=== PATIENT | male | born 1990 | race Caucasian/White ===

== ENCOUNTER 2022-11-14 10:28 | Emergency (ER) | payer BC ==
[~2022-11-14] VITALS: Ht 167.6 cm; Wt 77.1 kg
--- NOTE | 2022-11-14 10:50 | NUR ---
PT RECEIVED, CARE ASSUMED. PT PRESENTS SELF TO ER WITH C/O GEN BODY PAIN, FEVER AND COUGH. PT IN ROOM WITH Malaika CARDONA
[2022-11-14 10:55] VITALS: BP_SYST 112
[2022-11-14 11:14] LABS: BASOPHILS % (AUTO) 0.2 % (0.0-2.0); HEMOGLOBIN 14.2 g/dL (14.0-18.0); LYMPHOCYTES # (AUTO) 1.2 K/uL (1.0-5.5); LYMPHOCYTES % (AUTO) 7.7 % (20.5-51.5); MEAN CORPUSCULAR HEMOGLOBIN 32 pg (27-31); MEAN CORPUSCULAR HGB CONC 34 % (32-36); MEAN CORPUSCULAR VOLUME 93 fL (79.0-98.0); MONOCYTES # (AUTO) 1.3 K/uL (0.0-1.0); MONOCYTES % (AUTO) 7.9 % (1.7-9.3); NEUTROPHILS # (AUTO) 13.5 K/uL (1.8-7.7); NEUTROPHILS % (AUTO) 84.2 % (40.0-70.0); PLATELET COUNT (AUTO) 200 K/uL (130-430); RED CELL DISTRIBUTION WIDTH 12.8 % (9.0-15.0); WHITE BLOOD COUNT (AUTO) 16.1 K/uL (4.8-10.8)
[2022-11-14 11:20] LABS: ANION GAP 11 (5-15); CALCIUM 8.6 mg/dL (8.4-11.0); CHLORIDE 97 mmol/L (98-107); CREATININE 1.14 mg/dL (0.55-1.30); GFR AFRICAN AMERICAN 97 mL/min (>90); GLUCOSE 137 mg/dL (70-99); UREA NITROGEN, BLOOD 11 mg/dL (8-21)
[2022-11-14 11:31] LABS: ALANINE AMINOTRANSFERASE 14 U/L (12-78); ALBUMIN 3.2 g/dL (3.4-4.8); ASPARTATE AMINOTRANSFERASE 12 U/L (10-37); TOTAL BILIRUBIN 0.3 mg/dL (0.0-1.0)
[2022-11-14 11:32] LABS: C-REACTIVE PROTEIN QUANT < 0.2 mg/dL (0-0.5)
[2022-11-14] MEDS ORDERED: ONDANSETRON 4 MG ODT TAB PO ONE (12:00)
[2022-11-14] MEDS ORDERED: IBUPROFEN 800 MG TABLET PO ONE (12:00)
[2022-11-14 12:14] LABS: BILIRUBIN,URINE 1+ (NEGATIVE); CLARITY/URINE CLEAR (CLEAR); COLOR,URINE YELLOW (YELLOW); GLUCOSE,URINE NEGATIVE (NEGATIVE); KETONES,URINE TRACE (NEGATIVE); LEUKOCYTE ESTERASE ,URINE NEGATIVE (NEGATIVE); NITRITE, URINE NEGATIVE (NEGATIVE); PROTEIN URINE 2+ (NEGATIVE)
[2022-11-14] MEDS ORDERED: ONDA-8 TL (12:14)
[2022-11-14] MEDS ORDERED: IBUP-1971 PO (12:14)
[2022-11-14] MEDS ORDERED: CEPH250C PO (12:14)
[2022-11-14] MEDS ORDERED: cefTRIAXone 1 GM in LIDOCAINE 1%, 20 ML MDV 2.1 ML IM ONE (12:15)
[2022-11-14 12:23] LABS: BLOOD, URINE TRACE (NEGATIVE)
[2022-11-14 12:37] LABS: BACTERIA,URINE RARE /HPF (None Seen); WBC,URINE 0-3 /HPF (0-3)
[2022-11-14 12:38] LABS: FINE GRANULAR CASTS,URINE 0-10 /LPF (None Seen); HYALINE CASTS, URINE 0-10 /LPF (None Seen); MUCUS,URINE 3+ /LPF (None Seen)
[2022-11-14 13:22] VITALS: BP_SYST 135
--- NOTE | 2022-11-14 13:25 | NUR ---
Patient given written and verbal discharge instructions and verbalizes understanding. ER MD discussed with patient the results and treatment provided. Patient in stable condition. ID arm band removed. Patient educated on pain management and to follow up with PMD. Pain Scale []. Opportunity for questions provided and answered. Medication side effect fact sheet provided.
== END 2022-11-14 13:25 | disposition home or self-care (01) ==
LOC: SED 10:28
DX: R50.9 Fever, unspecified (principal); R11.10 Vomiting, unspecified; R19.7 Diarrhea, unspecified; R05.9 Cough, unspecified; Z79.899 Other long term (current) drug therapy; Z20.822 Contact with and (suspected) exposure to COVID-19
CPT/HCPCS: 99284; 71045; 87426; 80053; 81000; 85025; 86140; 36415; 96372; 83605; 87804 ×2; Q0162; J0696; J2001

== ENCOUNTER 2022-11-16 13:43 | Inpatient (IN) | payer BC ==
[~2022-11-16] VITALS: Ht 167.6 cm; Wt 77.1 kg
[~2022-11-16 13:43] MED LIST: CEPH250C PO; IBUP-1971 PO; ONDA-8 TL
[2022-11-16 14:20] VITALS: BP_SYST 107
[2022-11-16 15:22] LABS: BASOPHILS % (AUTO) 0.3 % (0.0-2.0); EOSINOPHILS % (AUTO) 0.1 % (0.0-4.0); HEMATOCRIT 41.5 % (36-54); HEMOGLOBIN 14.2 g/dL (14.0-18.0); LYMPHOCYTES # (AUTO) 0.4 K/uL (1.0-5.5); LYMPHOCYTES % (AUTO) 4.2 % (20.5-51.5); MEAN CORPUSCULAR HEMOGLOBIN 32 pg (27-31); MEAN CORPUSCULAR HGB CONC 34 % (32-36); MEAN CORPUSCULAR VOLUME 94 fL (79.0-98.0); MONOCYTES # (AUTO) 0.4 K/uL (0.0-1.0); MONOCYTES % (AUTO) 4.2 % (1.7-9.3); NEUTROPHILS # (AUTO) 9.5 K/uL (1.8-7.7); NEUTROPHILS % (AUTO) 91.2 % (40.0-70.0); PLATELET COUNT (AUTO) 233 K/uL (130-430); RED BLOOD CELL COUNT(AUTO) 4.42 MIL/uL (4.2-6.2); RED CELL DISTRIBUTION WIDTH 13.1 % (9.0-15.0); WHITE BLOOD COUNT (AUTO) 10.4 K/uL (4.8-10.8)
[2022-11-16 15:39] LABS: ANION GAP 14 (5-15); CALCIUM 8.9 mg/dL (8.4-11.0); CHLORIDE 97 mmol/L (98-107); CREATININE 2.61 mg/dL (0.55-1.30); GFR AFRICAN AMERICAN 37 mL/min (>90); GLUCOSE 93 mg/dL (70-99); UREA NITROGEN, BLOOD 26 mg/dL (8-21)
[2022-11-16 15:41] LABS: ALANINE AMINOTRANSFERASE 46 U/L (12-78); ALBUMIN 2.7 g/dL (3.4-4.8); ASPARTATE AMINOTRANSFERASE 112 U/L (10-37); TOTAL BILIRUBIN 0.2 mg/dL (0.0-1.0)
--- NOTE | 2022-11-16 16:00 | NUR ---
Note undone in EDM - 11/16/22 at 1805 by [id number] Patient BIBA for c/o generalized weakness and change of condition at facility. Patient has PEG tube. Contracted limbs. Unable to answer questions at this time. Respiration even and unlabored. No shortness of breath. Will continue to monitor.
[2022-11-16 16:02] LABS: ACETONE, SERUM NEGATIVE (NEGATIVE)
[2022-11-16 16:14] LABS: C-REACTIVE PROTEIN QUANT 56.7 mg/dL (0-0.5)
[2022-11-16] MEDS ORDERED: NACL 0.9% 2,000 ML IV ONE (16:45)
--- NOTE | 2022-11-16 17:00 | NUR ---
Patient in ED bed 4 for c/o cough, general weakness. He was previously at hospital a few days ago but was discharged with medication. He came back today for check up and he said he felt weaker. Patient is alert and oriented x4. Calm cooperative. Respiration even and unlabored. No c/o pain. Will continue to monitor. Call light within reach.
[2022-11-16] MEDS ORDERED: cefTRIAXone 1 GM in D5W 50 ML IV ONE (17:30)
--- NOTE | 2022-11-16 17:38 | NUR ---
COVID SWAB COLLECTED AND SENT TO LAB.
[2022-11-16] MEDS ORDERED: POTASSIUM CHLORIDE 20 MEQ TAB.PRT.SR PO ONE (18:45)
[2022-11-16 18:55] VITALS: BP_SYST 124
--- NOTE | 2022-11-16 19:00 | NUR ---
INITIAL NOTE: Received Patient from ER, lying in bed. Patient noted to be shivering & SOB. Alert & oriented x 4. Vitals: 99.1 F, 109, 124/68, 22, 96% on RA. Patient is accompanied by his mother. Patient mother provided home medications, med recon completed & all meds were returned. No edema noted. Diminished lung sounds to bilateral lower lobes. Patient had order for Potassium chloride 40mEq now, which was given. Patient vomited x 1, small amount. Patient states he is not nauseous but having difficulty breathing during coughing causes vomiting. IV 20 gauge to right AC, flushed & patent with no c/o pain, no signs of infiltration. white board updated. Patient oriented to room. Bed in low, locked position. Patient requesting to use home Ibuprofen for pain. Call light & personal items within reach. Will endorse to oncoming nurse Patient request for pain meds.
[2022-11-16] MEDS ORDERED: DIVA500T PO (19:01)
[2022-11-16] MEDS ORDERED: ESCI10TA PO (19:02)
[2022-11-16] MEDS: D5/0.45 NS 1,000 ML IV SCH (19:59)
--- NOTE | 2022-11-16 20:01 | NUR ---
Patient will be admitted to care of DONOVAN. Admitted to unit. Will go to room . Belongings list completed. Complete and up to date summary report printed. SBAR report to be given at bedside with opportunity for questions.
[2022-11-16 20:11] VITALS: BP_SYST 121
--- NOTE | 2022-11-16 20:22 | NUR ---
CONSULTATION PAGED/CALLED Reason for Consultation: infection Person Who was Notified: jose Consulting Physician: delicia jiménez is director of flight operations Paving Crew Foreman Specialty: Ordering Physician: javon
--- NOTE | 2022-11-16 20:54 | NUR ---
phoned paged DR Ny MACIAS MD - ORDERS .
[2022-11-16] MEDS ORDERED: ONDANSETRON HCL 4 MG/2 ML VIAL IVP PRN (21:00)
[2022-11-16] MEDS ORDERED: ALBUTEROL SULFATE 0.083% 2.5 MG/3 ML VIAL.NEB INH ONE (21:13)
--- NOTE | 2022-11-16 21:15 | NUR ---
New orders DR GILBERTO JOHNSON / .
[2022-11-16] MEDS: IBUPROFEN 600 MG TABLET PO PRN (21:54)
[2022-11-16] MEDS: guaiFENesin/DEXTROMETHORPHAN 10 ML UDC PO PRN (21:54)
[2022-11-16] MEDS ORDERED: ALBUTEROL SULFATE 0.083% 2.5 MG/3 ML VIAL.NEB INH PRN (22:00)
--- NOTE | 2022-11-16 22:56 | NUR ---
Robitussin DM po given for acute cough .
--- NOTE | 2022-11-16 22:56 | NUR ---
MOTRIN 600 MG PO given for pain monitor / .
--- NOTE | 2022-11-16 22:57 | NUR ---
ZOFRAN 4 MG IVP GIVEN FOR GI UPSET & HELPFUL / .
[2022-11-16 23:18] VITALS: BP_SYST 121
[2022-11-17] MEDS ORDERED: NALOXONE HCL 0.4 MG/ML AMP (NARCAN) IVP PRN ×2
[2022-11-17] MEDS ORDERED: HYDROcodone/ACETAMIN 10-325 MG TAB PO PRN
[2022-11-17] MEDS ORDERED: HYDROcodone/ACETAMIN 5-325 MG TAB (NORCO/ VICODIN) PO PRN
--- NOTE | 2022-11-17 00:15 | NUR ---
New IV start 20 GAUGE Right F/A tolerate , medications infusing as ordered / monitor .
[2022-11-17] MEDS ORDERED: AZITHROMYCIN 500 MG/VIAL (ZITHROMAX) IV ONE (02:27)
[2022-11-17] MEDS: AZITHROMYCIN 500 MG in NS 250 ML IV SCH ×2 (03:03→23:43)
[2022-11-17] MEDS: cefTRIAXone 1 GM IVPB PREMIX 50 ML IV SCH ×2 (03:03→22:32)
[2022-11-17] MEDS: D5/0.45 NS 1,000 ML IV SCH ×3 (03:04→20:00)
--- NOTE | 2022-11-17 03:48 | NUR ---
ZITHROMAX 500 MG IVPB administer as ordered patient awake alert no adverse reaction noted assist as needed / .
[2022-11-17 03:51] VITALS: BP_SYST 135
--- NOTE | 2022-11-17 04:39 | NUR ---
CONSULTATION PAGED/CALLED Reason for Consultation: AVNI Person Who was Notified:CECIL Consulting Physician: KARLEE [employer] Consultant Specialty: Ordering Physician: GILBERTO Addendum: 11/17/22 at 0441 by Celine Becker CNA DR AGRAWAL IS TRAINING AND DEVELOPMENT HEAD
[2022-11-17 07:09] LABS: BASOPHILS % (AUTO) 0.2 % (0.0-2.0); HEMOGLOBIN 12.9 g/dL (14.0-18.0); LYMPHOCYTES % (AUTO) 10.3 % (20.5-51.5); MEAN CORPUSCULAR HEMOGLOBIN 32 pg (27-31); MEAN CORPUSCULAR HGB CONC 34 % (32-36); MEAN CORPUSCULAR VOLUME 94 fL (79.0-98.0); MONOCYTES # (AUTO) 0.3 K/uL (0.0-1.0); MONOCYTES % (AUTO) 3.1 % (1.7-9.3); NEUTROPHILS # (AUTO) 8.1 K/uL (1.8-7.7); NEUTROPHILS % (AUTO) 86.4 % (40.0-70.0); PLATELET COUNT (AUTO) 228 K/uL (130-430); RED BLOOD CELL COUNT(AUTO) 4.06 MIL/uL (4.2-6.2); WHITE BLOOD COUNT (AUTO) 9.4 K/uL (4.8-10.8)
[2022-11-17] MEDS ORDERED: ACETAMINOPHEN 325 MG TABLET PO PRN (07:15)
[2022-11-17 07:40] LABS: ALBUMIN 2.2 g/dL (3.4-4.8); CALCIUM 8.3 mg/dL (8.4-11.0); CREATININE 2.75 mg/dL (0.55-1.30); PHOSPHORUS 3.6 mg/dL (2.7-4.5); TOTAL BILIRUBIN 0.2 mg/dL (0.0-1.0)
[2022-11-17] MEDS: guaiFENesin/DEXTROMETHORPHAN 10 ML UDC PO PRN ×3 (08:01→22:03)
[2022-11-17] MEDS: CITALOPRAM HYDROBROMIDE 20 MG TABLET PO SCH (08:01)
[2022-11-17] MEDS: IBUPROFEN 600 MG TABLET PO PRN (08:02)
[2022-11-17] MEDS ORDERED: ESCITALOPRAM OXALATE 10 MG TABLET PO SCH (09:00)
--- NOTE | 2022-11-17 09:00 | NUR ---
paptient c/o head ache and cough, prn Robitussin and motrin administered per emar
[2022-11-17] MEDS: DIVALPROEX SODIUM 500 MG TAB.SR.24H (DEPAKOTE ER) PO SCH (09:33)
[2022-11-17] MEDS: ALBUTEROL SULFATE 0.083% 2.5 MG/3 ML VIAL.NEB INH PRN (11:18)
[2022-11-17] MEDS: IPRATROPIUM BROM 0.5 MG/2.5 ML VIAL.NEB (ATROVENT) INH PRN (11:19)
[2022-11-17 13:12] VITALS: BP_SYST 110
[2022-11-17 13:14] VITALS: BP_SYST 110
[2022-11-17] MEDS: IBUPROFEN 800 MG TABLET PO PRN ×2 (16:10→23:43)
--- NOTE | 2022-11-17 16:32 | NUR ---
Social Service assessment In to see patient this afternoon. I introduced myself to him and asked if he was in agreement to speaking with me. The patient was in agreement to speaking with me at bedside. per patient, he resides with his parents. He is independent with his care needs. He was using no assistive devices prior to his admission to the hospital. He does not have a Power of Career Development Manager. His PCP is Dr. Fernandez in [place]. The discharge plan is for him to return home with his parents. The parents were advised that at time of discharge, he will be assessed for necessary needs and services. The patient is in agreement with the discharge plan to return home. At time of discharge, the patient states his mother will transport him home. I inquired with the patient about his psychotropic medication usage. Per patient, he does take Depakote and Lorazepam. He states his psychotropic medication are managed and prescribed by his RA doctor. He states he sees his drMicky on a quarterly basis, and takes his medication as prescribed. At this time, the patient is not in need of additional services or support.
[2022-11-17 17:02] VITALS: BP_SYST 127
[2022-11-17 17:03] VITALS: BP_SYST 127
--- NOTE | 2022-11-17 18:00 | NUR ---
patient resting comfortably in bed, no c/o pain or discomfort at this time, will endorse care to pm nurse
[2022-11-17 20:00] VITALS: BP_SYST 104
[2022-11-18 00:22] VITALS: BP_SYST 125
[2022-11-18 05:04] LABS: BASOPHILS % (AUTO) 0.4 % (0.0-2.0); EOSINOPHILS % (AUTO) 0.1 % (0.0-4.0); HEMATOCRIT 37.2 % (36-54); HEMOGLOBIN 12.6 g/dL (14.0-18.0); LYMPHOCYTES # (AUTO) 1.3 K/uL (1.0-5.5); LYMPHOCYTES % (AUTO) 14.8 % (20.5-51.5); MEAN CORPUSCULAR HEMOGLOBIN 32 pg (27-31); MEAN CORPUSCULAR HGB CONC 34 % (32-36); MEAN CORPUSCULAR VOLUME 94 fL (79.0-98.0); MONOCYTES # (AUTO) 0.6 K/uL (0.0-1.0); MONOCYTES % (AUTO) 6.5 % (1.7-9.3); NEUTROPHILS # (AUTO) 7.1 K/uL (1.8-7.7); NEUTROPHILS % (AUTO) 78.2 % (40.0-70.0); PLATELET COUNT (AUTO) 259 K/uL (130-430); RED BLOOD CELL COUNT(AUTO) 3.96 MIL/uL (4.2-6.2); RED CELL DISTRIBUTION WIDTH 13.3 % (9.0-15.0); WHITE BLOOD COUNT (AUTO) 9.1 K/uL (4.8-10.8)
[2022-11-18] MEDS: ALBUTEROL SULFATE 0.083% 2.5 MG/3 ML VIAL.NEB INH PRN (05:28)
[2022-11-18] MEDS: IPRATROPIUM BROM 0.5 MG/2.5 ML VIAL.NEB (ATROVENT) INH PRN (05:29)
[2022-11-18 05:40] LABS: BILIRUBIN,URINE NEGATIVE (NEGATIVE); BLOOD, URINE 1+ (NEGATIVE); COLOR,URINE YELLOW (YELLOW); GLUCOSE,URINE NEGATIVE (NEGATIVE); KETONES,URINE NEGATIVE (NEGATIVE); LEUKOCYTE ESTERASE ,URINE NEGATIVE (NEGATIVE); NITRITE, URINE NEGATIVE (NEGATIVE); PROTEIN URINE TRACE (NEGATIVE); UROBILINOGEN,URINE 0.2 (0.2-1.0)
[2022-11-18 05:50] LABS: CALCIUM 8.4 mg/dL (8.4-11.0)
[2022-11-18 06:20] LABS: CLARITY/URINE HAZY (CLEAR)
[2022-11-18 06:24] LABS: BACTERIA,URINE None Seen /HPF (None Seen); RBC,URINE 0-3 /HPF (0-3); WBC,URINE 0-3 /HPF (0-3)
[2022-11-18 06:25] LABS: CREATININE 1.72 mg/dL (0.55-1.30); PHOSPHORUS 3.9 mg/dL (2.7-4.5)
[2022-11-18 08:00] VITALS: BP_SYST 113
[2022-11-18 08:07] LABS: CREATINE KINASE MB 0.7 ng/mL (0-3.6)
--- NOTE | 2022-11-18 08:07 | NUR ---
Patient was received from AM shift nurse during change of shift. Patient is AA&Ox4 able to make needs known with call light within reach. Patient denied any pain or discomfort at this time. Chest rise even and unlabored on RA. Patient received scheduled medications as indicated. Patient was noted throughout the shift of complaining of a recurrent headache and PRN was administered as per protocol. at 0400am patient reported a sudden SOB of breath and RT was notified patient was having a hard time catching his breath O2 was assessed and noted at 81. Placed patient on a NC at 6L and O2 remained low at 86 so Face mask was applied at 10L and O2 went up to 95%. RT arrived and gave PT a PRN breathing TX and patient O2 improved slightly and face mask was re applied at 7L. Patient O2 is noted to fluctuate from 93 to high 80'S. Patient seems to be tolerating O2 and improving. While providing assistance at this time patient reported that he believed that his HEREDIA may be related to a port injury that he had a few days ago that led to a fall. Report was reported to Pricila SIMMONS for follow up and continuity of care.
[2022-11-18 08:08] LABS: ERYTHROCYTE SEDIMENTATION RATE 76 MM/HR (0-15)
[2022-11-18 08:50] LABS: C-REACTIVE PROTEIN QUANT 52.5 mg/dL (0-0.5)
[2022-11-18] MEDS: guaiFENesin/DEXTROMETHORPHAN 10 ML UDC PO PRN ×2 (09:04→21:46)
[2022-11-18] MEDS: IBUPROFEN 800 MG TABLET PO PRN ×2 (09:05→17:57)
[2022-11-18] MEDS: CITALOPRAM HYDROBROMIDE 20 MG TABLET PO SCH (09:05)
[2022-11-18] MEDS: DIVALPROEX SODIUM 500 MG TAB.SR.24H (DEPAKOTE ER) PO SCH (09:05)
[2022-11-18] MEDS: D5/0.45 NS 1,000 ML IV SCH ×2 (09:06→21:31)
[2022-11-18 11:00] VITALS: BP_SYST 117
[2022-11-18] MEDS ORDERED: LINEZOLID 300 ML IV ONE (13:00)
[2022-11-18] MEDS ORDERED: POTASSIUM CHLORIDE 20 MEQ/PKT PACKET PO ONE (13:00)
[2022-11-18] MEDS: ALBUTEROL SULFATE 0.083% 2.5 MG/3 ML VIAL.NEB INH SCH ×2 (13:38→23:05)
[2022-11-18] MEDS: IPRATROPIUM BROM 0.5 MG/2.5 ML VIAL.NEB (ATROVENT) INH SCH ×2 (13:38→23:05)
[2022-11-18 15:52] VITALS: BP_SYST 130
--- NOTE | 2022-11-18 18:59 | NUR ---
PT A/OX4,ON O2 5L/NC,SAT 92%,C/O HEADAHCE AND THROAT PAIN,GIVE MOTRIN PO PRN ORDER FOR PAIN,IVF CONTINUE INFUSING,IV SITE IN RFA PATENT AND INTACT GIVE IV ANTIBIOTIC DUE,NO ADVERSE REACTIONS NOTED.NEEDS ATTENDED,CALL LIGHT & PERSONAL ITEMS WITHIN PT REACH,SAFETY MAINTAINED.CONTINUE TO MONITOR PT.
--- NOTE | 2022-11-18 19:34 | NUR ---
RECEIVED PT LYING IN BED, NO DISTRESS NOTED, DENIES PAIN. AAOX4, O2 SAT 92% ON 5L VIA NC WITH HUMIDIFIER. +COUGH. RT LUNG DIMINISHED. IV TO RT FA SITE CDI. WILL CONTINUE TO MONITOR.
[2022-11-18 19:53] LABS: URINE SODIUM, RANDOM 13 mmol/L (40-220)
[2022-11-18 20:00] VITALS: BP_SYST 133
[2022-11-18] MEDS: LINEZOLID 300 ML IV SCH (21:30)
[2022-11-18 21:32] LABS: BILIRUBIN,URINE NEGATIVE (NEGATIVE); BLOOD, URINE 1+ (NEGATIVE); CLARITY/URINE CLEAR (CLEAR); COLOR,URINE YELLOW (YELLOW); GLUCOSE,URINE NEGATIVE (NEGATIVE); KETONES,URINE NEGATIVE (NEGATIVE); LEUKOCYTE ESTERASE ,URINE NEGATIVE (NEGATIVE); NITRITE, URINE NEGATIVE (NEGATIVE); PROTEIN URINE 1+ (NEGATIVE); UROBILINOGEN,URINE 0.2 (0.2-1.0)
--- NOTE | 2022-11-18 21:55 | NUR ---
Dietitian Recommendations Recommendations 1. Continue on regular diet -Encourage PO intakes as well as input food preferences -Add turkey sandwich BID & Vegetable Soup enrique in computrition 2. Revisit supplements during f/u if intake do not improve. Monitor & Evaluate weight trends, PO intake, Gi, skin, labs Please refer to Nutrition Assessment for details MARISELA HAIRSTON Addendum: 11/18/22 at [address] Amended: Links added.
[2022-11-18 22:34] LABS: BACTERIA,URINE FEW /HPF (None Seen); RBC,URINE 0-3 /HPF (0-3)
[2022-11-18 22:44] LABS: COARSE GRANULAR CASTS,URINE 0-10 /LPF (None Seen)
[2022-11-18 22:45] LABS: MUCUS,URINE 1+ /LPF (None Seen); OTHER CASTS, URINE WBC CASTS 1+ /LPF (None Seen)
[2022-11-19] VITALS (21 sets, daily range): BP systolic 113–164
[2022-11-19] MEDS: AZITHROMYCIN 500 MG in NS 250 ML IV SCH ×2 (00:02→23:48)
[2022-11-19] MEDS: ALBUTEROL SULFATE 0.083% 2.5 MG/3 ML VIAL.NEB INH SCH ×3 (00:41→22:04)
[2022-11-19] MEDS: IPRATROPIUM BROM 0.5 MG/2.5 ML VIAL.NEB (ATROVENT) INH SCH ×3 (00:41→22:05)
[2022-11-19] MEDS: cefTRIAXone 1 GM IVPB PREMIX 50 ML IV SCH (01:33)
[2022-11-19] MEDS: LORazepam 2 MG/ML VIAL IVP PRN ×2 (01:45→22:13)
[2022-11-19] MEDS: ONDANSETRON HCL 4 MG/2 ML VIAL IVP PRN ×2 (03:28→19:55)
[2022-11-19] MEDS: ALBUTEROL SULFATE 0.083% 2.5 MG/3 ML VIAL.NEB INH PRN ×2 (04:06→07:14)
[2022-11-19] MEDS: IPRATROPIUM BROM 0.5 MG/2.5 ML VIAL.NEB (ATROVENT) INH PRN ×2 (04:07→07:14)
--- NOTE | 2022-11-19 04:13 | NUR ---
UPON RETURNING FROM A LUNCH BREAK, THE CHARGE NURSE WAS CALLING THE MD DUE TO PT HAVING DIFFICULTY BREATHING AND DESATURATION TO MID 80'S. RR 38 PER MIN. RT PUT PT ON HIGH FLOW AT 100% 35L, O2 SAT 91%. STAT CHEST XRAY AND TRANSFER ORDER TO ICU. Addendum: 11/19/22 at 0540 by Teton TROY Juarez RN NOTIFIED PT'S MOTHER ON PT'S CONDITION AND TRANSFER TO ICU
[2022-11-19 05:42] LABS: BASOPHILS % (AUTO) 0.1 % (0.0-2.0); EOSINOPHILS % (AUTO) 0.1 % (0.0-4.0); HEMATOCRIT 34.5 % (36-54); HEMOGLOBIN 11.8 g/dL (14.0-18.0); LYMPHOCYTES # (AUTO) 0.9 K/uL (1.0-5.5); LYMPHOCYTES % (AUTO) 10.4 % (20.5-51.5); MEAN CORPUSCULAR HEMOGLOBIN 32 pg (27-31); MEAN CORPUSCULAR HGB CONC 34 % (32-36); MEAN CORPUSCULAR VOLUME 93 fL (79.0-98.0); MONOCYTES % (AUTO) 10.5 % (1.7-9.3); NEUTROPHILS # (AUTO) 7.2 K/uL (1.8-7.7); NEUTROPHILS % (AUTO) 78.9 % (40.0-70.0); PLATELET COUNT (AUTO) 220 K/uL (130-430); RED BLOOD CELL COUNT(AUTO) 3.71 MIL/uL (4.2-6.2); RED CELL DISTRIBUTION WIDTH 13.7 % (9.0-15.0); WHITE BLOOD COUNT (AUTO) 9.1 K/uL (4.8-10.8)
[2022-11-19 06:02] LABS: CALCIUM 8.1 mg/dL (8.4-11.0); CREATININE 0.97 mg/dL (0.55-1.30); TOTAL BILIRUBIN 0.2 mg/dL (0.0-1.0)
[2022-11-19 06:03] LABS: PHOSPHORUS 3.6 mg/dL (2.7-4.5)
[2022-11-19 06:44] LABS: C-REACTIVE PROTEIN QUANT 42.2 mg/dL (0-0.5)
[2022-11-19 07:10] LABS: CKMB RELATIVE INDEX 0.1 (0.0-2.9); CREATINE KINASE MB 0.8 ng/mL (0-3.6)
--- NOTE | 2022-11-19 07:15 | NUR ---
MD MACIAS PAGED FOR CRITICAL RESULT OF K+-2.8, AWAITING CALL BACK
--- NOTE | 2022-11-19 07:15 | NUR ---
RECEIVED PT IN BED #8, STABLE, VSS, HOWEVER FEBRILE, ON 35L HI FLOW AT 100%, IV D51/2NS @100. PT IS AAOx3, NAD, AWAITING ADDITIONAL ASSESSMENTS BY CONSULTING MDs FOR PLAN OF CARE WITH DISPOSITION.
[2022-11-19] MEDS: D5/0.45 NS 1,000 ML IV SCH ×3 (07:27→20:28)
--- NOTE | 2022-11-19 07:30 | NUR ---
MD PARADA CALLED TO INQUIRE ON STATUS OF PATIENT, ABX ORDERS CHANGED ROCEPHIN TO CEFEPIME. REQUESTED ID BE CONSULTED FOR ADDITIONAL MEDICATIONS. MD TO SEE PATIENT BEDSIDE.
--- NOTE | 2022-11-19 07:35 | NUR ---
MD HARP RETURNED PHONE CALL COVERING ID. ADDITIONAL ASSESSMENTS FOR CULTURES REQUESTED. ORDERS PLACED.
[2022-11-19 07:41] LABS: ERYTHROCYTE SEDIMENTATION RATE 77 MM/HR (0-15)
--- NOTE | 2022-11-19 07:45 | NUR ---
MD MACIAS RETURNED PHONE CALL AND ORDER FOR K-RIDER OF 40 MEQ ORDERED
[2022-11-19] MEDS: ACETAMINOPHEN 325 MG TABLET PO PRN (07:57)
[2022-11-19] MEDS ORDERED: KCL 20 mEq in 100 mL (PREMIX) 200 ML IV ONE (08:00)
[2022-11-19] MEDS: CITALOPRAM HYDROBROMIDE 20 MG TABLET PO SCH (08:15)
[2022-11-19] MEDS: DIVALPROEX SODIUM 500 MG TAB.SR.24H (DEPAKOTE ER) PO SCH (08:15)
--- NOTE | 2022-11-19 09:49 | NUR ---
Short Nutrition Note RD attended ICU rounds and s/w primary RN about his condition. Pt is not really eating d/t lethargy, N/V. RN suggested full liquid diet (w/ Ensure TID) for ease of eating; RD ordered this. Pt will be seen for a full follow-up on 11/21 JULIA, MPH, RD
[2022-11-19] MEDS: LINEZOLID 300 ML IV SCH ×2 (09:57→20:29)
[2022-11-19 10:43] LABS: PROTHROMBIN TIME 10.4 SECS (9.5-12.5)
--- NOTE | 2022-11-19 10:45 | NUR ---
RT NOTES Per sputum collection order, pt was educated on correct sample needed. Pt nodded in understanding. Specimen collection cup was provided, pt. to notify nurse once sample is obtained.
[2022-11-19] MEDS: methylPREDNISolone SOD SUCC/PF 62.5 MG/ML VIAL IVP SCH ×3 (11:35→23:48)
[2022-11-19] MEDS: MEROPENEM 1 GM IVPB PREMIX 50 ML IV SCH ×2 (13:22→20:29)
[2022-11-19] MEDS ORDERED: CEFEPIME 2 GM in D5W 100 ML IV SCH (14:00)
[2022-11-19] MEDS ORDERED: POTASSIUM CHLORIDE 20 MEQ TAB.PRT.SR PO ONE (15:15)
[2022-11-19] MEDS ORDERED: MAGNESIUM SULFATE 50 ML IV ONE (17:00)
[2022-11-19 17:43] LABS: BASOPHILS % (AUTO) 0.1 % (0.0-2.0); HEMATOCRIT 35.2 % (36-54); LYMPHOCYTES # (AUTO) 0.5 K/uL (1.0-5.5); LYMPHOCYTES % (AUTO) 6.1 % (20.5-51.5); MEAN CORPUSCULAR HEMOGLOBIN 32 pg (27-31); MEAN CORPUSCULAR HGB CONC 34 % (32-36); MEAN CORPUSCULAR VOLUME 93 fL (79.0-98.0); MONOCYTES # (AUTO) 0.5 K/uL (0.0-1.0); MONOCYTES % (AUTO) 5.5 % (1.7-9.3); NEUTROPHILS % (AUTO) 88.3 % (40.0-70.0); PLATELET COUNT (AUTO) 193 K/uL (130-430); RED BLOOD CELL COUNT(AUTO) 3.77 MIL/uL (4.2-6.2); RED CELL DISTRIBUTION WIDTH 13.6 % (9.0-15.0)
--- NOTE | 2022-11-19 19:30 | NUR ---
Pt report received. Pt AAOx4, respirations even, mildly tachypneic with O2 at 35 LPM/HFNC at 100% FiO2. JOON Midline patent and secure with D5 1/2 NS at 100 mL/hr. VSS.
--- NOTE | 2022-11-19 22:00 | NUR ---
RT at bedside to place pt on BiPAP. Pt refuses and states that it gives him anxiety. Educated pt on importance of BiPAP therapy to help improve his oxygenation. Informed pt that he may receive Ativan to help with anxiety. Pt then agrees to BiPAP.
--- NOTE | 2022-11-19 22:08 | NUR ---
Pt medicated with Ativan 1 mg IVP. Breathing tx in progress per RT. SPO2 92%.
--- NOTE | 2022-11-19 22:20 | NUR ---
BiPAP in place per RT with settings: /, 16, 100%. Pt states that he feels more relaxed now after receiving medication. Improvement noted to respirations and SPO2 at 96%.
--- NOTE | 2022-11-19 23:55 | NUR ---
Pt resting quietly, tolerating BiPAP well. Respirations even and non-labored, SPO2 97%. Pt easily awakened, denies c/o pain or discomfort and no needs verbalized at this time.
[2022-11-20] VITALS (29 sets, daily range): BP systolic 96–187
[2022-11-20] MEDS: MEROPENEM 1 GM IVPB PREMIX 50 ML IV SCH ×3 (05:54→21:54)
[2022-11-20] MEDS: methylPREDNISolone SOD SUCC/PF 62.5 MG/ML VIAL IVP SCH ×4 (05:54→23:52)
[2022-11-20] MEDS: LORazepam 2 MG/ML VIAL IVP PRN (05:55)
--- NOTE | 2022-11-20 06:05 | NUR ---
Pt tachypneic with abdominal breathing noted, RR 36, SPO2 88%. Pt repositioned to right side with pillow support and Ativan 1 mg given IVP for anxiety.
--- NOTE | 2022-11-20 06:15 | NUR ---
Pt continues to be tachypneic with abdominal breathing, SPO2 improved to 92%. RT at bedside for ABG.
--- NOTE | 2022-11-20 06:25 | NUR ---
Improvement noted to respirations, SPO2 97%. RT notifies of ABG results: 7.411/45.1/70.9/28. Will continue to monitor.
[2022-11-20 06:36] LABS: BASOPHILS % (AUTO) 0.1 % (0.0-2.0); HEMATOCRIT 35.4 % (36-54); LYMPHOCYTES % (AUTO) 7.8 % (20.5-51.5); MEAN CORPUSCULAR HEMOGLOBIN 32 pg (27-31); MEAN CORPUSCULAR HGB CONC 34 % (32-36); MEAN CORPUSCULAR VOLUME 94 fL (79.0-98.0); MONOCYTES % (AUTO) 7.9 % (1.7-9.3); NEUTROPHILS # (AUTO) 10.5 K/uL (1.8-7.7); NEUTROPHILS % (AUTO) 84.2 % (40.0-70.0); PLATELET COUNT (AUTO) 177 K/uL (130-430); RED BLOOD CELL COUNT(AUTO) 3.79 MIL/uL (4.2-6.2); RED CELL DISTRIBUTION WIDTH 13.7 % (9.0-15.0); WHITE BLOOD COUNT (AUTO) 12.4 K/uL (4.8-10.8)
[2022-11-20 07:07] LABS: CALCIUM 8.3 mg/dL (8.4-11.0); CREATININE 0.78 mg/dL (0.55-1.30); PHOSPHORUS 3.9 mg/dL (2.7-4.5)
--- NOTE | 2022-11-20 07:15 | NUR ---
Pt report given to oncoming RN. BRITTON, TRUMAN.
[2022-11-20 07:33] LABS: C-REACTIVE PROTEIN QUANT 36.2 mg/dL (0-0.5)
[2022-11-20] MEDS: IPRATROPIUM BROM 0.5 MG/2.5 ML VIAL.NEB (ATROVENT) INH SCH ×3 (07:37→23:22)
[2022-11-20] MEDS: ALBUTEROL SULFATE 0.083% 2.5 MG/3 ML VIAL.NEB INH SCH ×4 (07:37→23:21)
--- NOTE | 2022-11-20 07:37 | NUR ---
rt notes 0737 pt removed bipap and trying to cough up some secretions, seemed to be anxious. pt complained of N/V. Pt was saturating low 50s. Increased bipap settings to 13/7 R20, 100% fio2. Placed pt to Vapo 40L/100% FIO2, pt sat improves to low 70s. Encouraged pt to wear bipap back instead and high chris in bed. Pt calmed right now, saturating 92-93%. will cont to monitor pt. TROY Contreras at bedside.
--- NOTE | 2022-11-20 08:00 | NUR ---
PT RECIEVED IN RESPIRATORY DISTRESS, FROM BIPAP TO HIFLOW, BACK TO BIPAP, PAGED MD-PT ON 100% FIO2, PAGED MD- DR DEL RIO ON THE WAY//LYNSEY CH IS IN CHARGE OF THIS PT/MW
[2022-11-20] MEDS: LINEZOLID 300 ML IV SCH ×2 (08:03→20:51)
[2022-11-20 08:51] LABS: ERYTHROCYTE SEDIMENTATION RATE 88 MM/HR (0-15)
[2022-11-20] MEDS: DIVALPROEX SODIUM 500 MG TAB.SR.24H (DEPAKOTE ER) PO SCH (09:00)
[2022-11-20] MEDS: CITALOPRAM HYDROBROMIDE 20 MG TABLET PO SCH (09:00)
--- NOTE | 2022-11-20 09:15 | NUR ---
rt notes 0915 Pt was intubated by MD Begum. Prior intubating, hyperoxygenate pt via BVM 15LPM. Pt on 7.5/25CM LL ETT confirmed by CXR. Per MD Placed pt on (PC 20, R20 PEEP 8, 100% FIO2). Bilateral breath sounds heard. CO2 detector color changed to yellow. Post intubation MD Begum did bronchoscopy and Bilateral BAL sputum sent to lab. Saturation slowly going up to high 80s. will cont to monitor pt. Per post intubation ABG in 1hr. TROY Contreras at bedside.
[2022-11-20] MEDS ORDERED: ETOMIDATE 20 MG/ 10 ML VIAL (AMIDATE) ONE (10:00)
[2022-11-20] MEDS ORDERED: ROCURONIUM BROMIDE 10 MG/ML (ZEMURON) ONE (10:00)
[2022-11-20] MEDS: FENTANYL CITRATE-0.9 % NACL/PF 100 ML IV PRN ×4 (10:21→23:54)
--- NOTE | 2022-11-20 10:38 | NUR ---
NECESSARY TO INTUBATE THIS PATIENT, DESATURATES WITH THE SMALLEST OF MOVEMENT AND THE SEDATION NEEDED TO MAINTAIN OXYGENATION NECESSITATES INTUBATION/DR PARADA EXPLAINED TO PT NEEDS INTUBATION, PT AGREED/MOM ALSO INFORMED AND IN AGREEMENT/PT LOW GRADE FEVER BUT PT HR/BP GOOD//MW
[2022-11-20] MEDS ORDERED: NOREPINEPHRINE 4 MG/4 ML VIAL IV ONE (10:49)
--- NOTE | 2022-11-20 11:30 | NUR ---
rt notes 1130 MD Begum per post intubation ABG results, increased PEEP to 10 once BP stabilized.
[2022-11-20] MEDS: MIDAZOLAM IN NACL,ISO-OSMOT/PF 100 ML IV PRN ×2 (11:52→15:54)
[2022-11-20] MEDS ORDERED: ROCURONIUM BROMIDE 10 MG/ML (ZEMURON) IV ONE (12:00)
[2022-11-20] MEDS ORDERED: ETOMIDATE 20 MG/ 10 ML VIAL (AMIDATE) IVP ONE (12:00)
[2022-11-20] MEDS: MICAFUNGIN SODIUM 100 MG in NS 100 ML IV SCH (14:46)
[2022-11-20] MEDS: D5/0.45 NS 1,000 ML IV SCH (14:47)
--- NOTE | 2022-11-20 15:42 | NUR ---
Nutrition F/U RD reviewed pt's current EMR including diet Hx, physician notes, nursing notes, pertinent labs/meds/procedures, care trends, and care activity. Short note d/t high workload. Subjective Info: RD spoke w/ pt's primary RN earlier today who stated that Dr. Begum cleared pt to start on EN support later today, and requested verbal Nutrition Consult for TF. Pt is due to be seen for full Nutrition F/U tomorrow, however, d/t imminent need for EN support, RD reviewed current case. Per LOS meeting, pt was intubated this morning. RN stated pt has been receiving 40 mcg of propofol (18.48 ml/hr; 488 kcal/day); no report of BM; skin intact. RD relayed rec for Vital AF 1.2 at 10 ml/hr, increase by 10 ml Q8h to goal of 50 ml/hr, Free Water Flush: 50 ml Q6h via NGT -- together w/ current propofol infusion, this provides 1928 kcal/day, 90 gm protein/day, and 1173 ml free water/day, which meets 91% of estimated caloric needs and 98% of upper end of estimated protein needs. RD to F/U as per nutrition care standards. NEW Estimated Energy Expenditure (kcals/day) 2128 (PSU 2002b d/t critical illness; Ve: 13.5; Tmax: 37.8'C) Estimated Protein Required (g/day) 92 (1.2 gm/kg CBW d/t critical illness) Estimated Fluid Required (l/day) 2.1 (1 ml/kcal/day for adult maintenance) Addendum: 11/20/22 at [address] RD was notified by registered dietetic technician that Vital AF 1.2 is currently [id number]. New RD rec for modification of TF formula to Pivot 1.5 at goal rate of 40 ml/hr -- yields 1928 kcal/day, 90 gm protein/day, and 920 ml free water/day, which meets 91% of estimated caloric needs and 98% of upper end of estimated protein needs.
[2022-11-20] MEDS: PROPOFOL DRIP 100 ML IV PRN ×2 (18:06→23:55)
[2022-11-20] MEDS ORDERED: NOREPINEPHRINE BITARTRATE 8 MG in NS 242 ML IV PRN (19:00)
[2022-11-20] MEDS: BUDESONIDE 0.5 MG/2 ML AMPUL.NEB INH SCH (19:45)
--- NOTE | 2022-11-20 20:00 | NUR ---
RN NOTES ORALLY INTUBATED WHEN SEEN, O2 100% ON PRESSURE CONTROL. SPO2 92%. PATIENT IS SEDATED WITH FENTANYL DRIP AT 100mcg/hr. VERSED DRIP AT 10 mg/hr SINUS RHYTHM ON THE MONITOR. AFEBRILE. OGT PATENT, WILL START WITH TUBE FEEDING, PIVOT 1.5 AT 10 ML/HR
[2022-11-20] MEDS: PANTOPRAZOLE SODIUM 40 MG/VIAL (PROTONIX) IVP SCH (20:52)
--- NOTE | 2022-11-20 22:30 | NUR ---
RN NOTES PM CARE DONE, REPOSITIONED FOR COMFORT.
[2022-11-21] VITALS (31 sets, daily range): BP systolic 114–148
[2022-11-21] MEDS: AZITHROMYCIN 500 MG in NS 250 ML IV SCH ×2 (00:03→23:38)
[2022-11-21] MEDS: MIDAZOLAM IN NACL,ISO-OSMOT/PF 100 ML IV PRN ×3 (01:09→18:52)
[2022-11-21] MEDS: IPRATROPIUM BROM 0.5 MG/2.5 ML VIAL.NEB (ATROVENT) INH PRN (03:09)
[2022-11-21] MEDS: ALBUTEROL SULFATE 0.083% 2.5 MG/3 ML VIAL.NEB INH SCH ×6 (03:09→23:18)
--- NOTE | 2022-11-21 04:00 | NUR ---
RN NOTES AM CARE DONE, REPOSITIONED FOR COMFORT. TUBE FEEDING WELL TOLERATED, HOB UP TO PREVENT POSS. ASPIRATION.
[2022-11-21 05:49] LABS: BASOPHILS % (AUTO) 0.2 % (0.0-2.0); HEMATOCRIT 33.3 % (36-54); HEMOGLOBIN 11.1 g/dL (14.0-18.0); LYMPHOCYTES # (AUTO) 1.1 K/uL (1.0-5.5); LYMPHOCYTES % (AUTO) 6.7 % (20.5-51.5); MEAN CORPUSCULAR HEMOGLOBIN 31 pg (27-31); MEAN CORPUSCULAR HGB CONC 33 % (32-36); MEAN CORPUSCULAR VOLUME 95 fL (79.0-98.0); MONOCYTES # (AUTO) 2.1 K/uL (0.0-1.0); NEUTROPHILS # (AUTO) 12.8 K/uL (1.8-7.7); NEUTROPHILS % (AUTO) 80.1 % (40.0-70.0); PLATELET COUNT (AUTO) 181 K/uL (130-430); RED BLOOD CELL COUNT(AUTO) 3.52 MIL/uL (4.2-6.2); RED CELL DISTRIBUTION WIDTH 13.7 % (9.0-15.0)
--- NOTE | 2022-11-21 06:00 | NUR ---
RN NOTES ON SAME VENT SETTING, SPO2 94% STILL ON FENTANYL DRIP @ 100mcg/hr, VERSED DRIP @ 10 mg/hr, PROPOFOL DRIP @ 40 mcg/min 50ml WATER FLUSH TO OGT, PIVOT 1.5 FEEDING WELL TOLERATED.
[2022-11-21] MEDS: MEROPENEM 1 GM IVPB PREMIX 50 ML IV SCH ×3 (06:14→22:00)
[2022-11-21] MEDS: methylPREDNISolone SOD SUCC/PF 62.5 MG/ML VIAL IVP SCH ×3 (06:16→22:02)
[2022-11-21 06:25] LABS: C-REACTIVE PROTEIN QUANT 28.1 mg/dL (0-0.5); CALCIUM 8.2 mg/dL (8.4-11.0); CREATININE 0.9 mg/dL (0.55-1.30); TOTAL BILIRUBIN 0.2 mg/dL (0.0-1.0)
[2022-11-21] MEDS: D5/0.45 NS 1,000 ML IV SCH ×3 (06:49→21:04)
[2022-11-21] MEDS: BUDESONIDE 0.5 MG/2 ML AMPUL.NEB INH SCH ×2 (07:08→19:21)
[2022-11-21 07:45] LABS: ERYTHROCYTE SEDIMENTATION RATE 54 MM/HR (0-15)
--- NOTE | 2022-11-21 09:30 | NUR ---
Nutrition F/U Admitting Diagnosis Pneumonia, Renal Failure Reviewed Pertinent Medical/Surgical Hx Medical Record Patient Primary RN Medical History Comment: Per H&P (11/17/22), patient is a 32-year-old male who presents to the ER for evaluation of lab redraw. The patient had been seen on 11/14/2022 for 3 days of nausea, vomiting, diarrhea, nonproductive cough, headache and fever. The patient was treated with Versed IM in ED and was discharged. The patient was given Keflex in the ER, for lab redraw in 2 days. The patient has not improved. Current problems: Sepsis, multifocal pneumonia, Hx of anxiety disorder, Acute kidney injury, Hyponatremia, Hyperkalemia, Hypoalbuminemia Subjective Information: RD attended ICU rounds this morning. Primary RN reported that pt has been tolerating TF well, currently at 20 ml/hr, but plans to increase TF to 30 ml/hr by 1400. Pt continues intubated/sedated on propofol at 40 mcg. RN stated ABG report came back this morning, and pt seems to be slowly improving. Current Diet Order/Nutrition Support: Pivot 1.5 at 40 ml/hr (goal rate), Free Water Flush: 50 ml W6h via NGT x1 day Patient/Significant Other Unable To Verbalize Education Provided Not Indicated Pertinent Medications: lovenox, zofran, solu-medrol, propofol at 18.507 ml/hr (489 kcal/day) Pertinent Labs: Na 138 WNL, K 4.5 WNL, CRE 0.90 WNL, eGFR 105 WNL, WBC 16 H Height (Feet) 5 feet Height (Inches) 6.00 inches Weight (Pounds) 170 pounds -- stable since 11/18 Patient Weight 77.111 kg Body Mass Index 27.44 kg/m2 Usual Weight 175 lbs %UBW 97 %IBW 120 Hughes/Adjusted Body Weight 142 Recent Weight Change Yes - Patient states UBW 175 lbs. ~5 lbs. weight loss Weight Status Overweight Last BM 11/19 Food Allergies No Usual Diet At Home Regular Diet Skin Integrity Comment: Paulino score: 17; skin intact/no edema documented Current % PO N/A -- EN support since 11/20 NEW Estimated Energy Expenditure (kcals/day) 2128 (PSU 2002b d/t critical illness; Ve: 13.5; Tmax: 37.8'C) Estimated Protein Required (g/day) 92 (1.2 gm/kg CBW d/t critical illness) Estimated Fluid Required (l/day) 2.1 (1 ml/kcal/day for adult maintenance) Problem/Etiology/Signs/Symptoms 1. Inadequate protein/energy intake r/t poor appetite AEB Inadequate PO intake reported by EMR and patient x3 days. *Improving w/ EN support 2. Altered nutrition-related lab values r/t renal dysfunction/current medical condition AEB labs (11/18/22) Na 135L, K 3.4L, Creat 1.72H, eGFR 50L. *Improved Expected Outcomes/Goals 1. EN support will meet >80% of estimated nutrient need without GI complications 2. Improved/stable nutrition-related labs 3. Maintain skin integrity Dietitian Recommendations * Continue Pivot 1.5 at goal rate of 40 ml/hr, Free Water Flush: 50 ml Q6h via NGT Provides: 1928 kcal/day, 90 gm protein/day, and 920 ml free water/day Meets: 91% of estimated caloric needs and 98% of upper end of estimated protein needs Monitor/Evaluation Comment Weight trends, PO intake, GI, skin, labs Follow Up High Risk: F/U in 2-3 days
--- NOTE | 2022-11-21 09:35 | NUR ---
Dietitian Recommendations * Continue Pivot 1.5 at 40 ml/hr (goal rate), Free Water Flush: 50 ml Q6h via NGT Provides: 1928 kcal/day, 90 gm protein/day, and 920 ml free water/day Meets: 91% of estimated caloric needs and 98% of upper end of estimated protein needs LP, MS, RD Please refer to Nutrition F/U for details.
[2022-11-21] MEDS: LINEZOLID 300 ML IV SCH ×2 (10:06→21:03)
[2022-11-21] MEDS: ENOXAPARIN SODIUM 40 MG/0.4 ML SYRINGE SUBCUT SCH (10:12)
[2022-11-21] MEDS: DIVALPROEX SODIUM 500 MG TAB.SR.24H (DEPAKOTE ER) PO SCH (10:12)
[2022-11-21] MEDS: PANTOPRAZOLE SODIUM 40 MG/VIAL (PROTONIX) IVP SCH ×2 (10:12→21:03)
[2022-11-21] MEDS: CITALOPRAM HYDROBROMIDE 20 MG TABLET PO SCH (10:12)
--- NOTE | 2022-11-21 10:25 | NUR ---
rt notes 1000 MD Begum decreased fio2 to 85%. Pt saturting 92-93%. 1025 Per MD Begum pushed down ETT 1cm - 26cm LL due to leak, order executed. RN Teresa made aware. 1030- Pt starting to desaturate and starting wakin up. Pt placed back to 100% fio2 for now. 1040- ABG on 85% fio2 done. MD Begum made aware, per MD go back to 85% fio2 as much as possible. will cont to monitor pt.
[2022-11-21] MEDS: PROPOFOL DRIP 100 ML IV PRN ×3 (10:35→20:48)
[2022-11-21] MEDS: IPRATROPIUM BROM 0.5 MG/2.5 ML VIAL.NEB (ATROVENT) INH SCH ×4 (11:06→23:19)
--- NOTE | 2022-11-21 11:07 | NUR ---
RT NOTES 1107 TITRATED FIO2 TO 95%. RN AMAN MADE AWARE.
[2022-11-21] MEDS: FENTANYL CITRATE-0.9 % NACL/PF 100 ML IV PRN (15:04)
[2022-11-21] MEDS: MICAFUNGIN SODIUM 100 MG in NS 100 ML IV SCH (15:07)
--- NOTE | 2022-11-21 15:42 | NUR ---
rt notes 1542 increased fio2 to 100%, pt had desaturation episode to mid 70s. pt starting to wake up pt getting agitated/restless, pt getting tachypneic. will titrate fio2 as tolerated. ETT garay switched out as well due to pt biting tube. ETT still secured at 26cm LL. will cont to monitor pt.
--- NOTE | 2022-11-21 18:34 | NUR ---
The afternoon, the patient desaturated to the 70's, he was awake, restless and biting the ETT, it was secured @26cm. Patient titrated several times this shift, due to increase anxiety, attempted to wean the patient off but unsuccessful, sedation continues with Fentanyl @ 150mcgs, Versed 15mg and Diprivan @75mcgs. Breathing easy and unlabored, the patient is currently calm on vent.
--- NOTE | 2022-11-21 18:57 | NUR ---
The vent settings are as follows: PC 20, rate 20, peep 10 and Fi02 of 100%. No acute distress noted.
--- NOTE | 2022-11-21 20:00 | NUR ---
RN NOTES STILL ORALLY INTUBATED TO VENT, SPO2 GOOD. SINUS RHYTHM ON THE MONITOR, TUBE FEEDING AT 30 ML/HR PATIENT MADE COMFORTABLE.
[2022-11-22] VITALS (35 sets, daily range): BP systolic 111–131
[2022-11-22] MEDS: PROPOFOL DRIP 100 ML IV PRN ×7 (00:09→20:20)
[2022-11-22] MEDS: MIDAZOLAM IN NACL,ISO-OSMOT/PF 100 ML IV PRN ×3 (00:20→20:18)
[2022-11-22] MEDS: IPRATROPIUM BROM 0.5 MG/2.5 ML VIAL.NEB (ATROVENT) INH SCH ×6 (03:32→23:08)
[2022-11-22] MEDS: ALBUTEROL SULFATE 0.083% 2.5 MG/3 ML VIAL.NEB INH SCH ×6 (03:33→23:07)
--- NOTE | 2022-11-22 04:30 | NUR ---
RN NOTES AM CARE DONE. REPOSITIONED FOR COMFORT. RESTRAINTS OFF.
[2022-11-22] MEDS: D5/0.45 NS 1,000 ML IV SCH ×2 (05:30→17:08)
--- NOTE | 2022-11-22 06:00 | NUR ---
RN NOTES SAME SEDATION INFUSING VIA RIGHT UPPER ARM. STILL 100% ON PRESSURE CONTROL. PIVOT FEEDING RATE INCREASED TO 40 ML/HR.
[2022-11-22 06:01] LABS: BASOPHILS % (AUTO) 0.2 % (0.0-2.0); HEMOGLOBIN 10.7 g/dL (14.0-18.0); LYMPHOCYTES # (AUTO) 0.9 K/uL (1.0-5.5); LYMPHOCYTES % (AUTO) 5.3 % (20.5-51.5); MEAN CORPUSCULAR HEMOGLOBIN 32 pg (27-31); MEAN CORPUSCULAR HGB CONC 33 % (32-36); MEAN CORPUSCULAR VOLUME 95 fL (79.0-98.0); MONOCYTES # (AUTO) 1.9 K/uL (0.0-1.0); MONOCYTES % (AUTO) 11.3 % (1.7-9.3); NEUTROPHILS # (AUTO) 13.7 K/uL (1.8-7.7); NEUTROPHILS % (AUTO) 83.2 % (40.0-70.0); PLATELET COUNT (AUTO) 228 K/uL (130-430); RED BLOOD CELL COUNT(AUTO) 3.37 MIL/uL (4.2-6.2); RED CELL DISTRIBUTION WIDTH 13.8 % (9.0-15.0); WHITE BLOOD COUNT (AUTO) 16.4 K/uL (4.8-10.8)
[2022-11-22 06:18] LABS: CALCIUM 7.9 mg/dL (8.4-11.0); CREATININE 0.72 mg/dL (0.55-1.30)
[2022-11-22] MEDS: MEROPENEM 1 GM IVPB PREMIX 50 ML IV SCH ×3 (06:21→21:57)
[2022-11-22] MEDS: methylPREDNISolone SOD SUCC/PF 62.5 MG/ML VIAL IVP SCH ×3 (06:22→21:57)
[2022-11-22] MEDS: BUDESONIDE 0.5 MG/2 ML AMPUL.NEB INH SCH ×2 (08:07→19:37)
[2022-11-22] MEDS: ENOXAPARIN SODIUM 40 MG/0.4 ML SYRINGE SUBCUT SCH (08:36)
[2022-11-22] MEDS: DIVALPROEX SODIUM 500 MG TAB.SR.24H (DEPAKOTE ER) PO SCH (08:36)
[2022-11-22] MEDS: PANTOPRAZOLE SODIUM 40 MG/VIAL (PROTONIX) IVP SCH ×2 (08:36→20:43)
[2022-11-22] MEDS: CITALOPRAM HYDROBROMIDE 20 MG TABLET PO SCH (08:36)
[2022-11-22] MEDS: LINEZOLID 300 ML IV SCH (08:39)
[2022-11-22 09:49] LABS: ERYTHROCYTE SEDIMENTATION RATE 42 MM/HR (0-15)
[2022-11-22] MEDS ORDERED: FUROSEMIDE 20 MG/2 ML VIAL IVP ONE (10:45)
[2022-11-22] MEDS ORDERED: SULFAMETHOXAZOLE/TRIMETHOPR DS 1 TABLET PO ONE (11:30)
[2022-11-22] MEDS: FENTANYL CITRATE-0.9 % NACL/PF 100 ML IV PRN ×2 (12:12→19:22)
[2022-11-22] MEDS: AZITHROMYCIN 500 MG in NS 250 ML IV SCH (13:45)
[2022-11-22] MEDS: MICAFUNGIN SODIUM 100 MG in NS 100 ML IV SCH (14:46)
--- NOTE | 2022-11-22 17:18 | NUR ---
Approximately 0900- Per chargeback specialist, patient unstable to go to CT scan due to desaturations with activity and FIO2 100% on ventilator. CT staff aware and on unit. 1030- Dr. Begum rounded at bedside. Aware of RT weaning FIO2 from 100% to 95%. Aware of most recent ABG results and CBC and BMP results. Aware of current sedation medication drip rates. New orders rec'd. 1045- Dr. Brenner rounded at bedside. Made aware pending results for x4 lab results. Aware of most recent sputum results x2. Aware of current antibiotics ordered. New orders rec'd.
[2022-11-22] MEDS: SULFAMETHOXAZOLE/TRIMETHOPR DS 1 TABLET PO SCH (20:44)
[2022-11-23] VITALS (32 sets, daily range): BP systolic 121–143
[2022-11-23] MEDS: PROPOFOL DRIP 100 ML IV PRN ×8 (00:16→21:53)
--- NOTE | 2022-11-23 00:30 | NUR ---
RN NOTES SPO2 88%, FIO2 CHANGED TO 95% BY RT. SINUS RHYTHM ON THE MONITOR.
[2022-11-23] MEDS: FENTANYL CITRATE-0.9 % NACL/PF 100 ML IV PRN ×5 (01:14→22:39)
[2022-11-23] MEDS: MIDAZOLAM IN NACL,ISO-OSMOT/PF 100 ML IV PRN ×4 (02:54→20:19)
[2022-11-23] MEDS: IPRATROPIUM BROM 0.5 MG/2.5 ML VIAL.NEB (ATROVENT) INH SCH ×6 (03:19→23:00)
[2022-11-23] MEDS: ALBUTEROL SULFATE 0.083% 2.5 MG/3 ML VIAL.NEB INH SCH ×6 (03:19→22:59)
--- NOTE | 2022-11-23 05:00 | NUR ---
RN NOTES AM CARE/CHG BATH DONE. ON SAME VENT SETTING, SPO2 GOOD.
[2022-11-23] MEDS: D5/0.45 NS 1,000 ML IV SCH (05:27)
[2022-11-23] MEDS: MEROPENEM 1 GM IVPB PREMIX 50 ML IV SCH ×3 (05:28→20:54)
[2022-11-23] MEDS: methylPREDNISolone SOD SUCC/PF 62.5 MG/ML VIAL IVP SCH ×3 (05:28→21:56)
[2022-11-23 05:57] LABS: BASOPHILS % (AUTO) 0.1 % (0.0-2.0); HEMOGLOBIN 10.5 g/dL (14.0-18.0); LYMPHOCYTES # (AUTO) 1.2 K/uL (1.0-5.5); MEAN CORPUSCULAR HEMOGLOBIN 31 pg (27-31); MEAN CORPUSCULAR HGB CONC 33 % (32-36); MEAN CORPUSCULAR VOLUME 95 fL (79.0-98.0); MONOCYTES # (AUTO) 2.3 K/uL (0.0-1.0); MONOCYTES % (AUTO) 11.1 % (1.7-9.3); NEUTROPHILS # (AUTO) 17.2 K/uL (1.8-7.7); NEUTROPHILS % (AUTO) 82.8 % (40.0-70.0); PLATELET COUNT (AUTO) 272 K/uL (130-430); RED BLOOD CELL COUNT(AUTO) 3.37 MIL/uL (4.2-6.2); RED CELL DISTRIBUTION WIDTH 13.8 % (9.0-15.0)
[2022-11-23 06:14] LABS: C-REACTIVE PROTEIN QUANT 16.8 mg/dL (0-0.5); CALCIUM 7.8 mg/dL (8.4-11.0); CREATININE 0.77 mg/dL (0.55-1.30)
[2022-11-23] MEDS: BUDESONIDE 0.5 MG/2 ML AMPUL.NEB INH SCH ×2 (07:14→19:33)
--- NOTE | 2022-11-23 07:15 | NUR ---
received pt from transportation maintenance worker, sedated, on propofol, fentanyl, versed, PS 20 FiO2 100, OGT pivot 1.5 at 40 cc/hr tolerated well, FC patent draining with yellow urine, right UA midline infusing.
[2022-11-23 07:40] LABS: WHITE BLOOD COUNT (AUTO) 20.8 K/uL (4.8-10.8)
[2022-11-23 08:14] LABS: ERYTHROCYTE SEDIMENTATION RATE 51 MM/HR (0-15)
[2022-11-23] MEDS: DIVALPROEX SODIUM 500 MG TAB.SR.24H (DEPAKOTE ER) PO SCH (09:52)
[2022-11-23] MEDS: SULFAMETHOXAZOLE/TRIMETHOPR DS 1 TABLET PO SCH ×2 (09:52→20:54)
[2022-11-23] MEDS: CITALOPRAM HYDROBROMIDE 20 MG TABLET PO SCH (09:52)
[2022-11-23] MEDS: PANTOPRAZOLE SODIUM 40 MG/VIAL (PROTONIX) IVP SCH ×2 (09:52→20:54)
[2022-11-23] MEDS: ENOXAPARIN SODIUM 40 MG/0.4 ML SYRINGE SUBCUT SCH (09:52)
--- NOTE | 2022-11-23 10:45 | NUR ---
Nutrition F/U Admitting Diagnosis Pneumonia, Renal Failure Reviewed Pertinent Medical/Surgical Hx Medical Record Primary RN Medical History Comment: Per H&P (11/17/22), patient is a 32-year-old male who presents to the ER for evaluation of lab redraw. The patient had been seen on 11/14/2022 for 3 days of nausea, vomiting, diarrhea, nonproductive cough, headache and fever. The patient was treated with Versed IM in ED and was discharged. The patient was given Keflex in the ER, for lab redraw in 2 days. The patient has not improved. Current problems: Sepsis, multifocal pneumonia, Hx of anxiety disorder, Acute kidney injury, Hyponatremia, Hyperkalemia, Hypoalbuminemia Subjective Information: RD rounded to pt room and witnessed propofol running at 34.7 ml/hr (provides 916 kcal) and D5Ns @ 100ml/hr (provides 408kcal). Pt TF was turned off at the time. RD s/w RN about pt condition. RN attest that pt is in severe acute respiratory failure and will be placed in prone position. TF will be off during that time. RD asked if they would keep the D5 running since he had high BG levels and RN said they would likely switch to NS. Per EMR review: abd soft w/ hypoactive bowel sounds; BG trending high (168H). Current Diet Order/Nutrition Support: Pivot 1.5 at 40 ml/hr (goal rate), Free Water Flush: 50 ml q6h via NGT x 4 days Pertinent Medications: lovenox, solu-medrol, propofol at 34.7 ml/hr (916 kcal/day), azithro, D5NS @ 100mL/hr ( 408 kcal) Pertinent Labs: Na 141 WNL, K 4.7 WNL, CRE 0.77 WNL, eGFR 126 WNL, WBC 20.8 H (worsening) Height (Feet) 5 feet Height (Inches) 6.00 inches Weight (Pounds) 170 pounds -- stable since 11/18 Patient Weight 77.111 kg Body Mass Index 27.44 kg/m2 Usual Weight 175 lbs %UBW 97 %IBW 120 [place]/Adjusted Body Weight 142 Recent Weight Change Yes - Patient states UBW 175 lbs. ~5 lbs. weight loss Weight Status Overweight Last BM 3/29 x 1 Food Allergies No Usual Diet At Home Regular Diet Skin Integrity Comment: Paulino score: 14; skin intact Edema: BL arm 1+ pitting Current % PO N/A -- EN support since 11/20 Estimated Energy Expenditure (kcals/day) 2128 (PSU d/t critical illness; Ve: 13.5; Tmax: 37.8'C) Estimated Protein Required (g/day) 92 (1.2 gm/kg CBW d/t critical illness) Estimated Fluid Required (l/day) 2.1 (1 ml/kcal/day for adult maintenance) Problem/Etiology/Signs/Symptoms 1. Inadequate protein/energy intake r/t poor appetite AEB Inadequate PO intake reported by EMR and patient x3 days. *Improving w/ EN support 2. Altered nutrition-related lab values r/t renal dysfunction/current medical condition AEB labs (11/18/22) Na 135L, K 3.4L, Creat 1.72H, eGFR 50L. *Improved Expected Outcomes/Goals 1. EN support will meet >80% of estimated nutrient need without GI complications 2. Improved/stable nutrition-related labs 3. Maintain skin integrity Dietitian Recommendations * Pivot 1.5 at goal rate of 30 ml/hr, Free Water Flush: 50 ml Q6h via NGT Provides (w/ current prop and D5): 2404 kcal/day, 68 gm protein/day, and 740 ml free water (inc FWF) Meets: 113% of estimated caloric needs and 74% of estimated protein needs * Consider DC D5Ns as BG are trending high * If pt is extubated, please contact RD to re-assess nutritional needs Follow Up High Risk: F/U in 2-3 days JULIA, MPH, RD
--- NOTE | 2022-11-23 10:50 | NUR ---
Dietitian Recommendations * Pivot 1.5 at goal rate of 30 ml/hr, Free Water Flush: 50 ml Q6h via NGT Provides (w/ current prop and D5): 2404 kcal/day, 68 gm protein/day, and 740 ml free water (inc FWF) Meets: 113% of estimated caloric needs and 74% of estimated protein needs * Consider DC D5Ns as BG are trending high * If pt is extubated, please contact RD to re-assess nutritional needs GS, MPH, RD Please refer to Nutrition F/U for further details. Thanks!
--- NOTE | 2022-11-23 12:01 | NUR ---
Baseline TOF / @ 6mA
[2022-11-23] MEDS: VECURONIUM BROMIDE 50 MG in NS 50 ML IV PRN ×2 (12:55→16:40)
[2022-11-23] MEDS: AZITHROMYCIN 500 MG in NS 250 ML IV SCH (13:35)
[2022-11-23] MEDS: MICAFUNGIN SODIUM 100 MG in NS 100 ML IV SCH (15:33)
[2022-11-23] MEDS: NACL 0.9% 1,000 ML IV SCH (15:34)
[2022-11-23] MEDS: FUROSEMIDE 20 MG/2 ML VIAL IVP SCH (20:55)
[2022-11-24] VITALS (30 sets, daily range): BP systolic 115–140
[2022-11-24] MEDS: PROPOFOL DRIP 100 ML IV PRN ×5 (00:51→21:14)
[2022-11-24] MEDS: FENTANYL CITRATE-0.9 % NACL/PF 100 ML IV PRN ×3 (01:57→10:05)
[2022-11-24] MEDS: MIDAZOLAM IN NACL,ISO-OSMOT/PF 100 ML IV PRN ×3 (01:59→17:07)
[2022-11-24] MEDS: ALBUTEROL SULFATE 0.083% 2.5 MG/3 ML VIAL.NEB INH SCH ×6 (03:30→23:27)
[2022-11-24] MEDS: IPRATROPIUM BROM 0.5 MG/2.5 ML VIAL.NEB (ATROVENT) INH SCH ×6 (03:31→23:27)
[2022-11-24] MEDS: NACL 0.9% 1,000 ML IV SCH ×2 (04:13→18:26)
[2022-11-24] MEDS ORDERED: fentaNYL CITRATE/PF 100 MCG/2 ML AMP ONE ×2 (05:10→05:13)
[2022-11-24 05:39] LABS: BASOPHILS % (AUTO) 0.2 % (0.0-2.0); HEMATOCRIT 31.4 % (36-54); HEMOGLOBIN 10.5 g/dL (14.0-18.0); LYMPHOCYTES # (AUTO) 1.2 K/uL (1.0-5.5); LYMPHOCYTES % (AUTO) 5.7 % (20.5-51.5); MEAN CORPUSCULAR HEMOGLOBIN 31 pg (27-31); MEAN CORPUSCULAR HGB CONC 33 % (32-36); MEAN CORPUSCULAR VOLUME 94 fL (79.0-98.0); MONOCYTES # (AUTO) 1.6 K/uL (0.0-1.0); MONOCYTES % (AUTO) 7.1 % (1.7-9.3); NEUTROPHILS # (AUTO) 19.1 K/uL (1.8-7.7); PLATELET COUNT (AUTO) 296 K/uL (130-430); RED BLOOD CELL COUNT(AUTO) 3.33 MIL/uL (4.2-6.2); RED CELL DISTRIBUTION WIDTH 13.8 % (9.0-15.0); WHITE BLOOD COUNT (AUTO) 21.9 K/uL (4.8-10.8)
[2022-11-24] MEDS: VECURONIUM BROMIDE 50 MG in NS 50 ML IV PRN ×2 (05:39→19:42)
[2022-11-24] MEDS: MEROPENEM 1 GM IVPB PREMIX 50 ML IV SCH ×3 (05:39→21:07)
[2022-11-24 06:00] LABS: ALBUMIN 1.6 g/dL (3.4-4.8); C-REACTIVE PROTEIN QUANT 25.4 mg/dL (0-0.5); CALCIUM 7.9 mg/dL (8.4-11.0); CREATININE 0.7 mg/dL (0.55-1.30); PHOSPHORUS 4.2 mg/dL (2.7-4.5); TOTAL BILIRUBIN 0.3 mg/dL (0.0-1.0)
[2022-11-24] MEDS: methylPREDNISolone SOD SUCC/PF 62.5 MG/ML VIAL IVP SCH ×3 (06:00→21:13)
[2022-11-24 06:57] LABS: ERYTHROCYTE SEDIMENTATION RATE 60 MM/HR (0-15)
[2022-11-24] MEDS: BUDESONIDE 0.5 MG/2 ML AMPUL.NEB INH SCH ×2 (07:36→20:05)
[2022-11-24] MEDS: ENOXAPARIN SODIUM 40 MG/0.4 ML SYRINGE SUBCUT SCH (08:06)
[2022-11-24] MEDS: PANTOPRAZOLE SODIUM 40 MG/VIAL (PROTONIX) IVP SCH ×2 (08:06→21:12)
[2022-11-24] MEDS: FUROSEMIDE 20 MG/2 ML VIAL IVP SCH ×2 (08:06→21:12)
[2022-11-24] MEDS: CITALOPRAM HYDROBROMIDE 20 MG TABLET PO SCH (08:07)
[2022-11-24] MEDS: DIVALPROEX SODIUM 500 MG TAB.SR.24H (DEPAKOTE ER) PO SCH (08:07)
--- NOTE | 2022-11-24 08:15 | NUR ---
DR. SCANLON AT BEDSIDE AND AWARE THAT PATIENT IS RECEIVING MAX DOSE OF DIPRIVAN, VERSED, VECURONIUM, AND FENTANYL. TRAIN IS 4/4.
--- NOTE | 2022-11-24 08:15 | NUR ---
DR. SCANLON AT BEDSIDE, WHEN CHEST X-FAY RESULTS PENDING. ONCE THEY ARE RESULTED PER DR. SCANLON, HE WILL LOOK AT THE RESULTS. PER DR. SCANLON NO NEED TO CALL HIM REGARDING FOLOW UP OF CHEST X-RAY.
[2022-11-24] MEDS: SULFAMETHOXAZOLE/TRIMETHOPR DS 1 TABLET PO SCH ×2 (08:52→21:07)
--- NOTE | 2022-11-24 09:00 | NUR ---
rt notes 09 MD Frost changed pt vent settings to AC26,400VT PEEP 10 100% FIO2. pt saturating 95%. Per MD ABG in few hours. TROY Beltran made aware. will cont to monitor pt.
--- NOTE | 2022-11-24 10:50 | NUR ---
DR. HARP AT BEDSIDE TO EXAMINE PATIENT AND REVIEW LABS, AT THIS TIME PER DR. HARP PLACE PATIENT ON TB PRECAUTIONS. SIGNED POSTED OUTSIDE OF PATIENT'S DOOR. TB BLOOD AND SPUTUM TEST ORDERED.
--- NOTE | 2022-11-24 12:00 | NUR ---
PATIENT NOW SUPINE POSITION, TOLERATED WELL. O2 SATURATIONS INCREASED. NO S/SX DISTRESS/DISCOMFORT.
[2022-11-24] MEDS: AZITHROMYCIN 500 MG in NS 250 ML IV SCH (12:12)
--- NOTE | 2022-11-24 12:15 | NUR ---
rt notes 1215 Post ABG results on vent settings changes PRADIP 26, MD Frost no new orders. Pt kept on AC26, 400VT PEEP 10, 100% FIO2. Will titrate o2 as pt tolerates. will cont to monitor pt.
--- NOTE | 2022-11-24 12:15 | NUR ---
DR. SCANLON INFORMED BY TELEPHONE, REGARDING ABG RESULTS. NO NEW ORDERS AT THIS TIME, KEEP VENT SETTINGS THE SAME, JULIO GERARD MADE AWARE.
--- NOTE | 2022-11-24 12:25 | NUR ---
rt notes 1225 Pt placed supine. Prior and post supining pt, ett/oral sxn'd. ETT secured and patent at 26cm LL. pt saturating 96-97%. no resp distress noted.
--- NOTE | 2022-11-24 13:20 | NUR ---
TROY ÁLVAREZ CALLED PATIENT'S MOTHER ANUPAMA LITTLE AT HER CELL PHONE NUMBER PER MOTHER'S REQUEST TO OBTAIN UPDATE ON HOW SON TOLERATED BEING SUPINE. RN CALLED, NO ANSWER A VOICE MAIL MESSAGE WAS LEFT.
[2022-11-24] MEDS: MICAFUNGIN SODIUM 100 MG in NS 100 ML IV SCH (14:07)
--- NOTE | 2022-11-24 15:30 | NUR ---
rt notes 1530 Titrated fio2 to 90%, pt saturating 97%. will cont to monitor pt.
--- NOTE | 2022-11-24 21:00 | NUR ---
PT WAS PUT IN A PRONE POSITION @ 2100. PT IS TO BE PRONED FOR 16HRS PER MD ORDERS.
[2022-11-25] VITALS (35 sets, daily range): BP systolic 103–166
[2022-11-25] MEDS: PROPOFOL DRIP 100 ML IV PRN ×7 (00:21→21:22)
[2022-11-25] MEDS: FENTANYL CITRATE-0.9 % NACL/PF 100 ML IV PRN ×5 (00:23→21:21)
[2022-11-25] MEDS: MIDAZOLAM IN NACL,ISO-OSMOT/PF 100 ML IV PRN ×4 (00:24→22:30)
[2022-11-25] MEDS: VECURONIUM BROMIDE 50 MG in NS 50 ML IV PRN ×3 (02:08→17:34)
[2022-11-25] MEDS: IPRATROPIUM BROM 0.5 MG/2.5 ML VIAL.NEB (ATROVENT) INH SCH ×6 (03:32→23:29)
[2022-11-25] MEDS: ALBUTEROL SULFATE 0.083% 2.5 MG/3 ML VIAL.NEB INH SCH ×6 (03:32→23:28)
[2022-11-25] MEDS: methylPREDNISolone SOD SUCC/PF 62.5 MG/ML VIAL IVP SCH ×3 (05:45→22:16)
[2022-11-25] MEDS: MEROPENEM 1 GM IVPB PREMIX 50 ML IV SCH ×3 (05:45→21:22)
[2022-11-25] MEDS: NACL 0.9% 1,000 ML IV SCH ×2 (05:46→20:17)
[2022-11-25 05:54] LABS: BASOPHILS % (AUTO) 0.2 % (0.0-2.0); HEMATOCRIT 31.1 % (36-54); HEMOGLOBIN 10.3 g/dL (14.0-18.0); LYMPHOCYTES # (AUTO) 1.2 K/uL (1.0-5.5); LYMPHOCYTES % (AUTO) 6.9 % (20.5-51.5); MEAN CORPUSCULAR HEMOGLOBIN 31 pg (27-31); MEAN CORPUSCULAR HGB CONC 33 % (32-36); MEAN CORPUSCULAR VOLUME 94 fL (79.0-98.0); MONOCYTES # (AUTO) 1.4 K/uL (0.0-1.0); MONOCYTES % (AUTO) 8.1 % (1.7-9.3); NEUTROPHILS % (AUTO) 84.8 % (40.0-70.0); PLATELET COUNT (AUTO) 319 K/uL (130-430); RED BLOOD CELL COUNT(AUTO) 3.31 MIL/uL (4.2-6.2); RED CELL DISTRIBUTION WIDTH 13.4 % (9.0-15.0); WHITE BLOOD COUNT (AUTO) 17.7 K/uL (4.8-10.8)
[2022-11-25 06:27] LABS: C-REACTIVE PROTEIN QUANT 23.2 mg/dL (0-0.5); CALCIUM 8.1 mg/dL (8.4-11.0); CREATININE 0.63 mg/dL (0.55-1.30)
[2022-11-25] MEDS: BUDESONIDE 0.5 MG/2 ML AMPUL.NEB INH SCH ×2 (07:13→19:18)
[2022-11-25 07:24] LABS: ERYTHROCYTE SEDIMENTATION RATE 57 MM/HR (0-15)
--- NOTE | 2022-11-25 08:00 | NUR ---
LYNSEY CH RN IS IN CHARGE OF THIS PATIENT/ PT IS ONE TO ONE NURSING DUE TO MULTIPLE DRIPS AND VERY CRITICAL CONDITION-WELL SEDATED AND ON PARALYTIC WELL BUT PT STILL HAS COUGH THOUGH MAXED OUT ON SEDATIVES AND PARALYTICS, PT IS PRONE AND APPARENTLY TOLERATING WELL, TITRATED FIO2 FROM 90% TO 85% AND PLACED PT IN TRENDLENBERG POSITION, STARTED TF AT 10CC/H AND WILL INCREASES TOLERATED/PT AFEBRILE//MW
--- NOTE | 2022-11-25 08:05 | NUR ---
RT NOTES Dr Santosh fried, changed PEEP to 12, stated to treat pt as ARDS, ok for pt to be hypercapnic for now. Orders to keep titrating FIO2, and cont. proning as scheduled.
[2022-11-25] MEDS: FUROSEMIDE 20 MG/2 ML VIAL IVP SCH ×2 (08:25→20:16)
[2022-11-25] MEDS: CITALOPRAM HYDROBROMIDE 20 MG TABLET PO SCH (08:26)
[2022-11-25] MEDS: PANTOPRAZOLE SODIUM 40 MG/VIAL (PROTONIX) IVP SCH ×2 (08:26→20:16)
[2022-11-25] MEDS: ENOXAPARIN SODIUM 40 MG/0.4 ML SYRINGE SUBCUT SCH (08:26)
[2022-11-25] MEDS: DIVALPROEX SODIUM 500 MG TAB.SR.24H (DEPAKOTE ER) PO SCH (08:30)
[2022-11-25] MEDS: SULFAMETHOXAZOLE/TRIMETHOPR DS 1 TABLET PO SCH ×2 (08:30→20:16)
--- NOTE | 2022-11-25 12:00 | NUR ---
RT NOTES Assisted in unproning pt. A/w remains secure/patent. ETT re-taped to left side with assistance with RT Lisa. Pt. sat. 95-96%. Will cont to monitor pt.
[2022-11-25] MEDS: AZITHROMYCIN 500 MG in NS 250 ML IV SCH (12:43)
--- NOTE | 2022-11-25 14:00 | NUR ---
RT NOTES Per titration order, FIO2 to 0.75, no adverse reactions noted. Sat 95%. Will monitor pt. Rn made aware.
[2022-11-25] MEDS: MICAFUNGIN SODIUM 100 MG in NS 100 ML IV SCH (14:42)
--- NOTE | 2022-11-25 14:45 | NUR ---
ABLE TO TITRATE FIO2 NOW THAT PT IS SUPINE-TITRATED FI02 TO 75% AT 1400-O2 SAT STILL GOOD AT 96%//CONTINUE PRONING UNTIL PULMO SEES PATIENT//MW
--- NOTE | 2022-11-25 15:47 | NUR ---
RT NOTES per titration order, FIO2 TO 0.65. Sat 94%. will monitor pt. RN made aware
--- NOTE | 2022-11-25 19:25 | NUR ---
PM SHIFT ASSESSMENT PATIENT RESTING IN BED,VSS. RR EVEN AND UNLABORED. SR ON MONITOR. TUBEFEEDING INFUSING. SKIN AND LINES CHECKED. SAFETY PRECAUTIONS IN PLACE, WILL CONTINUE TO MONITOR.
--- NOTE | 2022-11-25 20:45 | NUR ---
PATIENT PLACED IN PRONE POSITION PER MD ORDER. RT AT BEDSIDE DURING TURN. PATIENT TOLERATED CARE WELL. WILL CONTINUE TO MONITOR AND ALTERNATE PATIENTS HEAD AND ARMS.
[2022-11-26] VITALS (36 sets, daily range): BP systolic 109–133
[2022-11-26] MEDS: VECURONIUM BROMIDE 50 MG in NS 50 ML IV PRN ×2 (01:39→18:50)
[2022-11-26] MEDS: IPRATROPIUM BROM 0.5 MG/2.5 ML VIAL.NEB (ATROVENT) INH SCH ×6 (03:17→23:05)
[2022-11-26] MEDS: ALBUTEROL SULFATE 0.083% 2.5 MG/3 ML VIAL.NEB INH SCH ×6 (03:18→23:05)
[2022-11-26] MEDS: FENTANYL CITRATE-0.9 % NACL/PF 100 ML IV PRN ×5 (03:34→22:58)
[2022-11-26] MEDS: PROPOFOL DRIP 100 ML IV PRN ×6 (03:35→22:59)
[2022-11-26] MEDS: MEROPENEM 1 GM IVPB PREMIX 50 ML IV SCH ×3 (05:23→21:37)
[2022-11-26] MEDS: methylPREDNISolone SOD SUCC/PF 62.5 MG/ML VIAL IVP SCH ×3 (05:24→21:37)
[2022-11-26] MEDS: MIDAZOLAM IN NACL,ISO-OSMOT/PF 100 ML IV PRN ×3 (05:26→18:49)
--- NOTE | 2022-11-26 06:00 | NUR ---
PATIENT RESTING IN BED. VSS. NO SIGNS OF ACUTE DISTRESS NOTED. PATIENT STILL IN PRONE POSITION, TOLERATING WELL. WILL CONTINUE TO MONITOR,.
[2022-11-26 06:30] LABS: BASOPHILS % (AUTO) 0.1 % (0.0-2.0); HEMATOCRIT 32.5 % (36-54); HEMOGLOBIN 10.8 g/dL (14.0-18.0); LYMPHOCYTES # (AUTO) 1.1 K/uL (1.0-5.5); LYMPHOCYTES % (AUTO) 7.2 % (20.5-51.5); MEAN CORPUSCULAR HEMOGLOBIN 31 pg (27-31); MEAN CORPUSCULAR HGB CONC 33 % (32-36); MEAN CORPUSCULAR VOLUME 95 fL (79.0-98.0); MONOCYTES # (AUTO) 1.3 K/uL (0.0-1.0); NEUTROPHILS # (AUTO) 12.5 K/uL (1.8-7.7); NEUTROPHILS % (AUTO) 83.7 % (40.0-70.0); PLATELET COUNT (AUTO) 389 K/uL (130-430); RED BLOOD CELL COUNT(AUTO) 3.44 MIL/uL (4.2-6.2); RED CELL DISTRIBUTION WIDTH 13.3 % (9.0-15.0)
[2022-11-26 06:51] LABS: C-REACTIVE PROTEIN QUANT 11.8 mg/dL (0-0.5); CALCIUM 8.4 mg/dL (8.4-11.0); CREATININE 0.63 mg/dL (0.55-1.30)
--- NOTE | 2022-11-26 07:13 | NUR ---
ENDORSEMENT PATIENT CARE ENDORSED TO DAYSHIFT RN, ALL NEEDS MET. REPORT GIVEN BEDSIDE.
--- NOTE | 2022-11-26 07:15 | NUR ---
Received pt from pump assembler, sedated, on propofol, fentanyl, versed, PS 20 FiO2 65, OGT pivot 1.5 at 25 cc/hr when supine, FC patent draining with yellow urine, right UA midline infusing.
--- NOTE | 2022-11-26 07:47 | NUR ---
RT NOTES FIO2 TO 0.55 PER TITRATION ORDER. WILL MONITOR PT.
[2022-11-26] MEDS: BUDESONIDE 0.5 MG/2 ML AMPUL.NEB INH SCH ×2 (07:54→19:57)
--- NOTE | 2022-11-26 08:20 | NUR ---
RT NOTES Dr Santosh fried, changed PEEP to 11. Provided target FIO2 no lower than 40% and stated no more proning.
[2022-11-26 08:26] LABS: ERYTHROCYTE SEDIMENTATION RATE 58 MM/HR (0-15)
--- NOTE | 2022-11-26 08:30 | NUR ---
RT NOTES Dr Frost orders for PEEP back to 12, stated "too many things going on and pt seems to like PEEP at 12". We will cont. titration Fio2.
[2022-11-26] MEDS: SULFAMETHOXAZOLE/TRIMETHOPR DS 1 TABLET PO SCH ×2 (08:38→21:37)
[2022-11-26] MEDS: PANTOPRAZOLE SODIUM 40 MG/VIAL (PROTONIX) IVP SCH ×2 (08:38→21:37)
[2022-11-26] MEDS: CITALOPRAM HYDROBROMIDE 20 MG TABLET PO SCH (08:38)
[2022-11-26] MEDS: DIVALPROEX SODIUM 500 MG TAB.SR.24H (DEPAKOTE ER) PO SCH (08:38)
[2022-11-26] MEDS: ENOXAPARIN SODIUM 40 MG/0.4 ML SYRINGE SUBCUT SCH (08:38)
[2022-11-26] MEDS ORDERED: FUROSEMIDE 20 MG/2 ML VIAL IVP ONE (08:45)
--- NOTE | 2022-11-26 10:03 | NUR ---
Nutrition F/U RD reviewed pts current EMR including diet hx, physician notes, nursing notes, pertinent labs/meds/procedures, care trends and care activity. Subjective Information RD attended ICU rounds and s/w RNJeff about pt condition. He attested that labs are looking better and though his WBC are still high, they are trending down. He reports that pt will be placed supine today at noon and prone position will be DC. Pt is on versed, fentanyl, propofol (611 kcal), NS. RN asked about prone positon and TF. RD and RN thought it made sense to turn off feedings during proning however RD did some research after the meeting and found that it is possible to feed enterally during proning. The important thing is to make sure that feeding tube is placed before proning and then just monitor for tolerance. It is better to keep the feeding going, perhaps at a lower rate during proning, rather than turn it off completely. RD called to relay new findings to RN. Per EMR review: GRV low (under 20mL since 11/22); abd soft, distended w/ active bowel sounds. Current Diet Order/Nutrition Support Pivot 1.5 @ 30mL/hr (goal), FWF 50mL q6h via NGT % PO intake NPO Last BM 11/25 x 1 Estimated Energy Expenditure (kcals/day) 2127 (PSU d/t critical illness; Ve: 13.5; Tmax: 37.8'C) Estimated Protein Required (g/day) 92 (1.2 gm/kg CBW d/t critical illness) Estimated Fluid Required (l/day) Refer to MD (renal labs) Problem/Etiology/Signs/Symptoms 1. Inadequate protein/energy intake r/t poor appetite AEB Inadequate PO intake reported by EMR and patient x3 days. *Improving w/ EN support 2. Altered nutrition-related lab values r/t renal dysfunction/current medical condition AEB labs (11/18/22) Na 135L, K 3.4L, Creat 1.72H, eGFR 50L. *Improved Expected Outcomes/Goals 1. EN support will meet >80% of estimated nutrient need without GI complications 2. Improved/stable nutrition-related labs 3. Maintain skin integrity Dietitian Recommendations * Advance rate: Pivot 1.5 at goal rate of 40 ml/hr, Free Water Flush: 50 ml Q6h via NGT Provides (w/ current prop): 2051 kcal/day, 90 gm protein/day, and 920 ml free water (inc FWF) Meets: 96% of estimated caloric needs and 98% of estimated protein needs * If pt needs to be proned again, use these rates to ensure adequate nutrition needs are met: --Prone (16hrs): Pivot 1.5@ 20mL/hr via NGT Provides: 480 kcal, 30 g PRO, 240 mL free water --Supine (8hrs): Pivot 1.5 @ 55mL/hr via NGT Provides: 660 kcal, 43 g PRO, 330mL free water * If pt is extubated, please contact RD to re-assess nutritional needs Follow up *High risk: see pt in2-3 days JULIA, MPH, RD
--- NOTE | 2022-11-26 10:09 | NUR ---
Dietitian Recommendations * Advance rate: Pivot 1.5 at goal rate of 40 ml/hr, Free Water Flush: 50 ml Q6h via NGT Provides (w/ current prop): 2051 kcal/day, 90 gm protein/day, and 920 ml free water (inc FWF) Meets: 96% of estimated caloric needs and 98% of estimated protein needs * If pt needs to be proned again, use these rates to ensure adequate nutrition needs are met: --Prone (16hrs): Pivot 1.5@ 20mL/hr via NGT Provides: 480 kcal, 30 g PRO, 240 mL free water --Supine (8hrs): Pivot 1.5 @ 55mL/hr via NGT Provides: 660 kcal, 43 g PRO, 330mL free water * If pt is extubated, please contact RD to re-assess nutritional needs GS, MPH, RD Please refer to Nutrition F/U for further details. Thanks!
[2022-11-26] MEDS: NACL 0.9% 1,000 ML IV SCH ×2 (10:13→21:37)
--- NOTE | 2022-11-26 12:00 | NUR ---
RT NOTES Assisted in unproning pt. A/w remains secure/patent. Sat 98% @1235 titrated to 0.50
--- NOTE | 2022-11-26 12:02 | NUR ---
Wound Evaluation: Wound Consult ordered for Low Paulino Score. Patient evaluated for a low Paulino score of 13. Patient is on airborne precautions, intubated, sedated, paralyzed on Vecuronium drip, and received in a [place] Bed with a low air-loss mattress. Patient needs to be turned in bed and is currently in prone position. Skin is intact. Recommend reposition patient side to side only every 2 hours with pillow support. Elevate, offload and float bilateral heels with pillows. Offload pressure areas with pillows for pressure re-distribution. Perform skin care and monitor skin integrity Q shift. Use moisture barrier cream on moisture susceptible areas QID and PRN for soiling. Maintain patient on a low air-loss mattress.
[2022-11-26] MEDS: AZITHROMYCIN 500 MG in NS 250 ML IV SCH (13:12)
[2022-11-26] MEDS: MICAFUNGIN SODIUM 100 MG in NS 100 ML IV SCH (13:51)
--- NOTE | 2022-11-26 17:10 | NUR ---
RT NOTES Assisted in moving pt from ICU 8 to ICU 1. Pt was bagged with resus. bag with PEEP valve set at 12, once in the room, placed pt back on vent with same settings. Vent to red outlet. Alarms remains set and audible at nurse's station. A/w remains secure/patent. sat 97-98%. H.R 69.
[2022-11-27] VITALS (34 sets, daily range): BP systolic 97–130
[2022-11-27] MEDS: VECURONIUM BROMIDE 50 MG in NS 50 ML IV PRN ×2 (00:44→08:59)
[2022-11-27] MEDS: MIDAZOLAM IN NACL,ISO-OSMOT/PF 100 ML IV PRN ×4 (00:44→22:00)
[2022-11-27] MEDS: IPRATROPIUM BROM 0.5 MG/2.5 ML VIAL.NEB (ATROVENT) INH SCH ×6 (03:15→23:15)
[2022-11-27] MEDS: ALBUTEROL SULFATE 0.083% 2.5 MG/3 ML VIAL.NEB INH SCH ×6 (03:15→23:15)
[2022-11-27 05:31] LABS: BASOPHILS % (AUTO) 0.1 % (0.0-2.0); EOSINOPHILS % (AUTO) 0.1 % (0.0-4.0); HEMATOCRIT 32.7 % (36-54); HEMOGLOBIN 10.9 g/dL (14.0-18.0); LYMPHOCYTES # (AUTO) 0.9 K/uL (1.0-5.5); LYMPHOCYTES % (AUTO) 10.9 % (20.5-51.5); MEAN CORPUSCULAR HEMOGLOBIN 32 pg (27-31); MEAN CORPUSCULAR HGB CONC 33 % (32-36); MEAN CORPUSCULAR VOLUME 95 fL (79.0-98.0); MONOCYTES # (AUTO) 0.7 K/uL (0.0-1.0); MONOCYTES % (AUTO) 8.5 % (1.7-9.3); NEUTROPHILS # (AUTO) 6.4 K/uL (1.8-7.7); NEUTROPHILS % (AUTO) 80.4 % (40.0-70.0); PLATELET COUNT (AUTO) 394 K/uL (130-430); RED BLOOD CELL COUNT(AUTO) 3.43 MIL/uL (4.2-6.2); RED CELL DISTRIBUTION WIDTH 13.3 % (9.0-15.0); WHITE BLOOD COUNT (AUTO) 7.9 K/uL (4.8-10.8)
[2022-11-27 05:51] LABS: C-REACTIVE PROTEIN QUANT 5.3 mg/dL (0-0.5); CALCIUM 8.1 mg/dL (8.4-11.0); CREATININE 0.58 mg/dL (0.55-1.30)
[2022-11-27 05:58] LABS: ERYTHROCYTE SEDIMENTATION RATE 46 MM/HR (0-15)
[2022-11-27] MEDS: methylPREDNISolone SOD SUCC/PF 62.5 MG/ML VIAL IVP SCH (06:15)
[2022-11-27] MEDS: PROPOFOL DRIP 100 ML IV PRN ×4 (06:15→18:54)
[2022-11-27] MEDS: MEROPENEM 1 GM IVPB PREMIX 50 ML IV SCH ×3 (06:15→21:09)
[2022-11-27] MEDS: FENTANYL CITRATE-0.9 % NACL/PF 100 ML IV PRN ×4 (06:16→22:00)
[2022-11-27] MEDS: BUDESONIDE 0.5 MG/2 ML AMPUL.NEB INH SCH ×2 (07:09→19:58)
--- NOTE | 2022-11-27 07:30 | NUR ---
Received pt from fast food shift supervisor, on airborne/contact iso for TB rule out. He was intubated on 11/20 ETT 7.5 26cm @ LL to vent, sedated on propofol @ 60mcg/kg/min, fentanyl @ 200mcg/hr, and versed @ 15mg/hr. Pt is paralyzed on Vecuronium at 1/34 mcg/kg/min, TOF 4/[address] Frost we will try to titrate off the paralytic and maintain sedation. BIS machine removed per Dr Frost. Pt also on NS at 75 ml/hr. Vent mode: ACVC FiO2 40, RR 26, 400vt, peep 12. OGT in place and secured running pivot 1.5 at 30 cc/hr with FWF 50ml q6 hrs tolerating well. FC patent draining with yellow urine, placed on 11/20. Right UA midline placed 11/19 infusing, C/D/I. Will continue to monitor closely
--- NOTE | 2022-11-27 08:02 | NUR ---
RT NOTES Dr Frost rounding, orders PEEP to 10 and to be slowly titrated to 8.
--- NOTE | 2022-11-27 08:09 | NUR ---
PER MD SCANLON, WANTS VECURONIUM DRIP TIRATED DOWN, OFF OF PARALYTICS. NO NEED FOR BIS MONITORING PER MD SCANLON. DOES NOT WANT PATIENT PARALYZED ANYMORE.
[2022-11-27] MEDS: NACL 0.9% 1,000 ML IV SCH (08:55)
[2022-11-27] MEDS ORDERED: FUROSEMIDE 20 MG/2 ML VIAL IVP SCH (09:00)
[2022-11-27] MEDS: SULFAMETHOXAZOLE/TRIMETHOPR DS 1 TABLET PO SCH ×2 (09:08→21:09)
[2022-11-27] MEDS: DIVALPROEX SODIUM 500 MG TAB.SR.24H (DEPAKOTE ER) PO SCH (09:08)
[2022-11-27] MEDS: CITALOPRAM HYDROBROMIDE 20 MG TABLET PO SCH (09:08)
[2022-11-27] MEDS: ENOXAPARIN SODIUM 40 MG/0.4 ML SYRINGE SUBCUT SCH (09:10)
[2022-11-27] MEDS: PANTOPRAZOLE SODIUM 40 MG/VIAL (PROTONIX) IVP SCH ×2 (09:14→21:08)
--- NOTE | 2022-11-27 11:37 | NUR ---
RT NOTES PEEP to 9 per titration order. Rn made aware. @1203 sat 95%
--- NOTE | 2022-11-27 11:53 | NUR ---
THE PATIENTS MOTHER ANUPAMA CAME BY AND I PROVIDED HER WITH UPDATES AND ALL QUESTIONS/CONCERNS ADDRESSED.
[2022-11-27] MEDS: MICAFUNGIN SODIUM 100 MG in NS 100 ML IV SCH (13:29)
--- NOTE | 2022-11-27 16:35 | NUR ---
RT NOTES PEEP to 8. will monitor pt. rn aware
--- NOTE | 2022-11-27 19:25 | NUR ---
Report given to oncoming RN Mauro who assumed total care of the pt at this time with all questions answered.
--- NOTE | 2022-11-27 19:25 | NUR ---
I TITRATED DOWN THE VECURONIUM SUBSTANTIALLY TODAY FROM 1.34 MCG/KG/MIN TO 0.74 MCG/KG/MIN WITH THE LAST TITRATION/STOPPING THE DRIP ENDORSED TO THE ONCOMING RN.
[2022-11-27] MEDS: METHYLPREDNISOLONE SOD SUCC 40 MG/ML VIAL IVP SCH (21:08)
--- NOTE | 2022-11-27 22:00 | NUR ---
Vecuronium drip discontinued per dr Frost.
[2022-11-28] VITALS (35 sets, daily range): BP systolic 99–155
[2022-11-28] MEDS: FENTANYL CITRATE-0.9 % NACL/PF 100 ML IV PRN ×3 (02:47→19:46)
[2022-11-28] MEDS: NACL 0.9% 1,000 ML IV SCH ×2 (03:07→16:50)
[2022-11-28] MEDS: ALBUTEROL SULFATE 0.083% 2.5 MG/3 ML VIAL.NEB INH SCH ×6 (03:10→23:06)
[2022-11-28] MEDS: IPRATROPIUM BROM 0.5 MG/2.5 ML VIAL.NEB (ATROVENT) INH SCH ×6 (03:10→23:06)
[2022-11-28 05:30] LABS: BASOPHILS % (AUTO) 0.1 % (0.0-2.0); EOSINOPHILS % (AUTO) 0.5 % (0.0-4.0); HEMATOCRIT 33.2 % (36-54); HEMOGLOBIN 11.1 g/dL (14.0-18.0); LYMPHOCYTES # (AUTO) 1.8 K/uL (1.0-5.5); LYMPHOCYTES % (AUTO) 20.9 % (20.5-51.5); MEAN CORPUSCULAR HEMOGLOBIN 32 pg (27-31); MEAN CORPUSCULAR HGB CONC 34 % (32-36); MEAN CORPUSCULAR VOLUME 94 fL (79.0-98.0); MONOCYTES # (AUTO) 1.3 K/uL (0.0-1.0); MONOCYTES % (AUTO) 15.9 % (1.7-9.3); NEUTROPHILS # (AUTO) 5.3 K/uL (1.8-7.7); NEUTROPHILS % (AUTO) 62.6 % (40.0-70.0); PLATELET COUNT (AUTO) 443 K/uL (130-430); RED BLOOD CELL COUNT(AUTO) 3.51 MIL/uL (4.2-6.2); RED CELL DISTRIBUTION WIDTH 13.2 % (9.0-15.0); WHITE BLOOD COUNT (AUTO) 8.5 K/uL (4.8-10.8)
[2022-11-28 05:54] LABS: ALBUMIN 1.9 g/dL (3.4-4.8); C-REACTIVE PROTEIN QUANT 2.5 mg/dL (0-0.5); CREATININE 0.58 mg/dL (0.55-1.30); PHOSPHORUS 2.3 mg/dL (2.7-4.5); TOTAL BILIRUBIN 0.4 mg/dL (0.0-1.0)
[2022-11-28 06:12] LABS: ERYTHROCYTE SEDIMENTATION RATE 43 MM/HR (0-15)
[2022-11-28] MEDS: MEROPENEM 1 GM IVPB PREMIX 50 ML IV SCH (06:34)
--- NOTE | 2022-11-28 07:30 | NUR ---
Received pt from weight shifter, on airborne/contact iso for TB rule out. He was intubated on 11/20 ETT 7.5 26cm @ LL to vent, sedated on propofol @ 60mcg/kg/min, fentanyl @ 200mcg/hr, and versed @ 15mg/hr. Pt also on NS at 75 ml/hr. Vent mode: ACVC FiO2 40, RR 26, 400vt, peep 8. OGT in place and secured running pivot 1.5 at 30 cc/hr with FWF 50ml q6 hrs tolerating well. FC patent draining with yellow urine, placed on 11/20. Right UA midline placed 11/19 infusing, C/D/I. Will continue to monitor closely
[2022-11-28] MEDS: BUDESONIDE 0.5 MG/2 ML AMPUL.NEB INH SCH ×2 (07:35→19:35)
[2022-11-28] MEDS: MIDAZOLAM IN NACL,ISO-OSMOT/PF 100 ML IV PRN ×2 (07:50→17:44)
[2022-11-28] MEDS: PROPOFOL DRIP 100 ML IV PRN ×5 (09:42→22:30)
[2022-11-28] MEDS: METHYLPREDNISOLONE SOD SUCC 40 MG/ML VIAL IVP SCH ×2 (09:43→21:53)
[2022-11-28] MEDS: CITALOPRAM HYDROBROMIDE 20 MG TABLET PO SCH (09:43)
[2022-11-28] MEDS: DIVALPROEX SODIUM 500 MG TAB.SR.24H (DEPAKOTE ER) PO SCH (09:43)
[2022-11-28] MEDS: SULFAMETHOXAZOLE/TRIMETHOPR DS 1 TABLET PO SCH ×2 (09:43→21:53)
[2022-11-28] MEDS: PANTOPRAZOLE SODIUM 40 MG/VIAL (PROTONIX) IVP SCH ×2 (09:43→21:53)
[2022-11-28] MEDS: ENOXAPARIN SODIUM 40 MG/0.4 ML SYRINGE SUBCUT SCH (09:44)
[2022-11-28] MEDS ORDERED: NA PHOS 15 MM in NS 250 ML IV ONE (10:00)
[2022-11-28] MEDS: MICAFUNGIN SODIUM 100 MG in NS 100 ML IV SCH (13:26)
--- NOTE | 2022-11-28 19:00 | NUR ---
Received report from endorsing morning shift RN for continuity of care. Patient is on airborne/contact isolation for TB rule out. Patient is lying in bed with IVF NS @ 75 mL/hr, propofol @ 65mcg/kg/min, fentanyl @ 200 mcg/hr, and versed @ 6 mg/hr. Patient's vital signs blood pressure 126/68, heart rate 108, respirations 22, and SPO2 97% on ventilator. Ventilator settings ACVC rate 24, tidal volume 400, FiO2 40%, peep of 7. OGT in place and secured running pivot 1.5 at 30 cc/hr with FWF 50ml q6 hrs tolerating well. Sims catheter is in place draining to gravity. Bed is locked and in lowest position, fall and safety precautions is in place.
--- NOTE | 2022-11-28 19:30 | NUR ---
Report given to the oncoming rn who assumed total care of the pt at this time with all questions answered
[2022-11-29] VITALS (32 sets, daily range): BP systolic 98–152
[2022-11-29] MEDS: FENTANYL CITRATE-0.9 % NACL/PF 100 ML IV PRN ×5 (00:02→23:59)
[2022-11-29] MEDS: PROPOFOL DRIP 100 ML IV PRN ×7 (00:42→22:43)
[2022-11-29] MEDS: ALBUTEROL SULFATE 0.083% 2.5 MG/3 ML VIAL.NEB INH SCH ×6 (03:02→23:20)
[2022-11-29] MEDS: IPRATROPIUM BROM 0.5 MG/2.5 ML VIAL.NEB (ATROVENT) INH SCH ×6 (03:02→23:20)
[2022-11-29 03:07] LABS: COCCIDIOIDES AB IGG 0.9 IV (<=0.9); COCCIDIOIDES AB IGM 0.4 IV (<=0.9)
[2022-11-29] MEDS: NACL 0.9% 1,000 ML IV SCH ×2 (04:37→18:30)
[2022-11-29 05:08] LABS: BASOPHILS % (AUTO) 0.2 % (0.0-2.0); EOSINOPHILS % (AUTO) 0.4 % (0.0-4.0); HEMATOCRIT 31.4 % (36-54); HEMOGLOBIN 10.4 g/dL (14.0-18.0); LYMPHOCYTES # (AUTO) 1.7 K/uL (1.0-5.5); LYMPHOCYTES % (AUTO) 20.3 % (20.5-51.5); MEAN CORPUSCULAR HEMOGLOBIN 32 pg (27-31); MEAN CORPUSCULAR HGB CONC 33 % (32-36); MEAN CORPUSCULAR VOLUME 95 fL (79.0-98.0); MONOCYTES # (AUTO) 1.1 K/uL (0.0-1.0); NEUTROPHILS # (AUTO) 5.3 K/uL (1.8-7.7); NEUTROPHILS % (AUTO) 65.1 % (40.0-70.0); PLATELET COUNT (AUTO) 408 K/uL (130-430); RED BLOOD CELL COUNT(AUTO) 3.31 MIL/uL (4.2-6.2); RED CELL DISTRIBUTION WIDTH 13.1 % (9.0-15.0); WHITE BLOOD COUNT (AUTO) 8.2 K/uL (4.8-10.8)
[2022-11-29] MEDS: MIDAZOLAM IN NACL,ISO-OSMOT/PF 100 ML IV PRN (05:17)
[2022-11-29 05:19] LABS: ERYTHROCYTE SEDIMENTATION RATE 26 MM/HR (0-15)
[2022-11-29 05:26] LABS: C-REACTIVE PROTEIN QUANT 2.5 mg/dL (0-0.5); CALCIUM 7.7 mg/dL (8.4-11.0); CREATININE 0.53 mg/dL (0.55-1.30)
[2022-11-29] MEDS: BUDESONIDE 0.5 MG/2 ML AMPUL.NEB INH SCH ×2 (07:15→19:55)
--- NOTE | 2022-11-29 08:28 | NUR ---
RECEIVED PT IN THE AM PT SEDATED AT THIS TIME ABLE TO BE AROUSED, TOLERATING GT FEEDING MIDLINE IN PLACE, PT CALM HR WNL, NO S/S OF PAIN NOTED, ALL SAFETY MEASURES IN USE WITH CALL LIGHT AT HAND, NO ORDERS FOR D/C AT THIS TIME, PT ON AIRBORNE/CONTACT PRECAUTIONS DUE TO R/O TB, ALL SIGNS POSTED AT EYE LEVEL, CONTACT PRECAUTION EQUIPMENT PROVIDED.
--- NOTE | 2022-11-29 08:34 | NUR ---
GUERA JOHNSON AT BEDSIDE EVAL PT AT THIS TIME,
[2022-11-29] MEDS: METHYLPREDNISOLONE SOD SUCC 40 MG/ML VIAL IVP SCH ×2 (09:33→20:45)
[2022-11-29] MEDS: CITALOPRAM HYDROBROMIDE 20 MG TABLET PO SCH (09:34)
[2022-11-29] MEDS: ACETAMINOPHEN 325 MG TABLET PO PRN (09:34)
[2022-11-29] MEDS: ENOXAPARIN SODIUM 40 MG/0.4 ML SYRINGE SUBCUT SCH (09:34)
[2022-11-29] MEDS: DIVALPROEX SODIUM 500 MG TAB.SR.24H (DEPAKOTE ER) PO SCH (09:34)
[2022-11-29] MEDS: PANTOPRAZOLE SODIUM 40 MG/VIAL (PROTONIX) IVP SCH ×2 (09:37→20:45)
[2022-11-29] MEDS: SULFAMETHOXAZOLE/TRIMETHOPR DS 1 TABLET PO SCH ×2 (09:38→20:45)
--- NOTE | 2022-11-29 10:25 | NUR ---
FAMILY MEMBER (MOM) AT BEDSIDE UPDATED STATUS GIVEN, PHONE [phone].
--- NOTE | 2022-11-29 14:06 | NUR ---
Nutrition F/U RD reviewed pts current EMR including diet hx, physician notes, nursing notes, pertinent labs/meds/procedures, care trends and care activity. Subjective Information: RD rounded to ICU and spoke w/ pt's primary RN who reported that pt has been tolerating TF well, no BM reported today. RD relayed pt has not had a BM in the past 4 days per EMR review. Wt appears to remain stable per EMR review. Pt would benefit from increase in TF rate as pt is no longer receiving a high dose of propofol infusion -- currently running at 2.313 ml/hr (61 kcal/day). Current Diet Order/Nutrition Support: Pivot 1.5 at 30 ml/hr (goal), Free Water Flush: 50 ml Q6h via NGT x6 days % PO intake: NPO Last BM: x1 4 NEW Estimated Energy Expenditure (kcals/day) 1970 (PSU d/t critical illness; Ve: 9.5; Tmax: 37.6'C) NEW Estimated Protein Required (g/day) 116-154 (1.5-2 gm/kg CBW d/t critical illness) NEW Estimated Fluid Required (l/day) 2 (1 ml/kcal/day for adult maintenance) Problem/Etiology/Signs/Symptoms 1. Inadequate protein/energy intake r/t poor appetite AEB Inadequate PO intake reported by EMR and patient x3 days. *Improving w/ EN support 2. Altered nutrition-related lab values r/t renal dysfunction/current medical condition AEB labs (11/18/22) Na 135L, K 3.4L, Creat 1.72H, eGFR 50L. *Lab now improved, mostly WNL Expected Outcomes/Goals 1. EN support will meet >80% of estimated nutrient need without GI complications 2. Improved/stable nutrition-related labs 3. Maintain skin integrity Dietitian Recommendations * Pivot 1.5 at 55 ml/hr (goal rate), Free Water Flush: 150 ml Q4h via NGT Provides (w/ current propofol infusion rate): 2041 kcal/day, 124 gm protein/day, and 1890 ml free water/day Meets: 104% of estimated caloric needs, 81% of upper end of estimated protein needs, and 95% of estimated fluid needs * If pt is extubated, please contact RD to re-assess nutritional needs Follow up * High Risk: RD to F/U within 2-3 days
[2022-11-29] MEDS: MICAFUNGIN SODIUM 100 MG in NS 100 ML IV SCH (14:16)
--- NOTE | 2022-11-29 14:20 | NUR ---
Dietitian Recommendations Dietitian Recommendations * Pivot 1.5 at 55 ml/hr (goal rate), Free Water Flush: 150 ml Q4h via NGT Provides (w/ current propofol infusion rate): 2041 kcal/day, 124 gm protein/day, and 1890 ml free water/day Meets: 104% of estimated caloric needs, 81% of upper end of estimated protein needs, and 95% of estimated fluid needs * If pt is extubated, please contact RD to re-assess nutritional needs LP, MS, RD Please refer to Nutrition F/U for details.
--- NOTE | 2022-11-29 19:00 | NUR ---
Received report from endorsing morning shift RN for continuity of care. Patient is on airborne/contact isolation for TB rule out. Patient is lying in bed with IVF NS @ 75 mL/hr, propofol @ 65 mcg/kg/min, fentanyl @ 200 mcg/hr, and versed @ 3 mg/hr. Patient's vital signs blood pressure 145/82, heart rate 116, respirations 22, and SPO2 96% on ventilator. Ventilator settings AC rate 24, tidal volume 400, FiO2 40%, peep of 5. OGT in place and secured running pivot 1.5 at 30 cc/hr with FWF 50ml q6 hrs tolerating well. Sims catheter is in place draining to gravity. Bed is locked and in lowest position, fall and safety precautions is in place.
[2022-11-29] MEDS: CEFEPIME 2 GM in D5W 100 ML IV SCH (20:45)
[2022-11-30] VITALS (31 sets, daily range): BP systolic 102–164
[2022-11-30] MEDS: PROPOFOL DRIP 100 ML IV PRN ×7 (00:48→23:03)
[2022-11-30] MEDS: MIDAZOLAM IN NACL,ISO-OSMOT/PF 100 ML IV PRN ×2 (02:37→19:21)
[2022-11-30] MEDS: IPRATROPIUM BROM 0.5 MG/2.5 ML VIAL.NEB (ATROVENT) INH SCH ×6 (03:05→23:15)
[2022-11-30] MEDS: ALBUTEROL SULFATE 0.083% 2.5 MG/3 ML VIAL.NEB INH SCH ×6 (03:05→23:15)
[2022-11-30] MEDS: FENTANYL CITRATE-0.9 % NACL/PF 100 ML IV PRN ×3 (03:32→18:40)
[2022-11-30] MEDS: ACETAMINOPHEN 325 MG TABLET PO PRN (05:14)
[2022-11-30] MEDS: NACL 0.9% 1,000 ML IV SCH ×2 (06:39→20:35)
[2022-11-30] MEDS: BUDESONIDE 0.5 MG/2 ML AMPUL.NEB INH SCH ×2 (07:00→19:59)
[2022-11-30 07:23] LABS: BASOPHILS % (AUTO) 0.1 % (0.0-2.0); EOSINOPHILS # (AUTO) 0.1 K/uL (0.0-0.4); EOSINOPHILS % (AUTO) 0.6 % (0.0-4.0); HEMOGLOBIN 11.5 g/dL (14.0-18.0); LYMPHOCYTES # (AUTO) 1.4 K/uL (1.0-5.5); LYMPHOCYTES % (AUTO) 11.7 % (20.5-51.5); MEAN CORPUSCULAR HEMOGLOBIN 32 pg (27-31); MEAN CORPUSCULAR HGB CONC 34 % (32-36); MEAN CORPUSCULAR VOLUME 95 fL (79.0-98.0); MONOCYTES # (AUTO) 1.3 K/uL (0.0-1.0); MONOCYTES % (AUTO) 11.1 % (1.7-9.3); NEUTROPHILS # (AUTO) 8.9 K/uL (1.8-7.7); NEUTROPHILS % (AUTO) 76.5 % (40.0-70.0); PLATELET COUNT (AUTO) 459 K/uL (130-430); RED BLOOD CELL COUNT(AUTO) 3.59 MIL/uL (4.2-6.2); RED CELL DISTRIBUTION WIDTH 13.2 % (9.0-15.0); WHITE BLOOD COUNT (AUTO) 11.6 K/uL (4.8-10.8)
[2022-11-30 07:43] LABS: C-REACTIVE PROTEIN QUANT 3.7 mg/dL (0-0.5); CREATININE 0.57 mg/dL (0.55-1.30)
[2022-11-30 08:25] LABS: ERYTHROCYTE SEDIMENTATION RATE 56 MM/HR (0-15)
--- NOTE | 2022-11-30 08:40 | NUR ---
BRONCHOSCOPY DONE BY DR SCANLON. INCREASED FIO2 TO 100% DURING PROCEDURE. BRONCHIAL WASHING OBTAINED FROM BOTH LEFT AND RIGHT LUNG. SPECIMENS SENT TO LAB. PT TOLERATED BRONCHOSCOPY WELL.. FIO2 BACK TO 40%.
[2022-11-30] MEDS: PANTOPRAZOLE SODIUM 40 MG/VIAL (PROTONIX) IVP SCH ×2 (10:12→20:52)
[2022-11-30] MEDS: ENOXAPARIN SODIUM 40 MG/0.4 ML SYRINGE SUBCUT SCH (10:13)
[2022-11-30] MEDS: CEFEPIME 2 GM in D5W 100 ML IV SCH ×2 (10:13→20:51)
[2022-11-30] MEDS: CITALOPRAM HYDROBROMIDE 20 MG TABLET PO SCH (10:15)
[2022-11-30] MEDS: SULFAMETHOXAZOLE/TRIMETHOPR DS 1 TABLET PO SCH ×2 (10:15→20:52)
[2022-11-30] MEDS: DIVALPROEX SODIUM 500 MG TAB.SR.24H (DEPAKOTE ER) PO SCH (10:15)
[2022-11-30] MEDS: METHYLPREDNISOLONE SOD SUCC 40 MG/ML VIAL IVP SCH ×2 (10:15→20:54)
[2022-11-30] MEDS: MICAFUNGIN SODIUM 100 MG in NS 100 ML IV SCH (13:37)
[2022-12-01] VITALS (33 sets, daily range): BP systolic 101–155
[2022-12-01] MEDS: PROPOFOL DRIP 100 ML IV PRN ×5 (03:20→18:31)
[2022-12-01] MEDS: IPRATROPIUM BROM 0.5 MG/2.5 ML VIAL.NEB (ATROVENT) INH SCH ×6 (03:50→23:01)
[2022-12-01] MEDS: ALBUTEROL SULFATE 0.083% 2.5 MG/3 ML VIAL.NEB INH SCH ×6 (03:50→23:01)
[2022-12-01 06:15] LABS: BASOPHILS % (AUTO) 0.1 % (0.0-2.0); EOSINOPHILS # (AUTO) 0.1 K/uL (0.0-0.4); EOSINOPHILS % (AUTO) 0.7 % (0.0-4.0); HEMATOCRIT 33.2 % (36-54); HEMOGLOBIN 11.1 g/dL (14.0-18.0); LYMPHOCYTES # (AUTO) 1.9 K/uL (1.0-5.5); LYMPHOCYTES % (AUTO) 14.5 % (20.5-51.5); MEAN CORPUSCULAR HEMOGLOBIN 31 pg (27-31); MEAN CORPUSCULAR HGB CONC 33 % (32-36); MEAN CORPUSCULAR VOLUME 94 fL (79.0-98.0); MONOCYTES # (AUTO) 1.4 K/uL (0.0-1.0); MONOCYTES % (AUTO) 11.1 % (1.7-9.3); NEUTROPHILS # (AUTO) 9.5 K/uL (1.8-7.7); NEUTROPHILS % (AUTO) 73.6 % (40.0-70.0); PLATELET COUNT (AUTO) 461 K/uL (130-430); RED BLOOD CELL COUNT(AUTO) 3.54 MIL/uL (4.2-6.2); RED CELL DISTRIBUTION WIDTH 13.1 % (9.0-15.0); WHITE BLOOD COUNT (AUTO) 12.9 K/uL (4.8-10.8)
[2022-12-01 06:58] LABS: C-REACTIVE PROTEIN QUANT 8.4 mg/dL (0-0.5); CALCIUM 7.9 mg/dL (8.4-11.0); CREATININE 0.48 mg/dL (0.55-1.30); PHOSPHORUS 2.5 mg/dL (2.7-4.5); TOTAL BILIRUBIN 0.4 mg/dL (0.0-1.0)
--- NOTE | 2022-12-01 07:35 | NUR ---
REPORT GIVEN TO TROY JEREZ, AND CARE WAS TURNED OVER TO HIM..
[2022-12-01 08:17] LABS: ERYTHROCYTE SEDIMENTATION RATE 58 MM/HR (0-15)
[2022-12-01] MEDS: ENOXAPARIN SODIUM 40 MG/0.4 ML SYRINGE SUBCUT SCH (10:50)
[2022-12-01] MEDS: METHYLPREDNISOLONE SOD SUCC 40 MG/ML VIAL IVP SCH ×2 (10:50→21:52)
[2022-12-01] MEDS: PANTOPRAZOLE SODIUM 40 MG/VIAL (PROTONIX) IVP SCH ×2 (10:51→21:52)
[2022-12-01] MEDS: CITALOPRAM HYDROBROMIDE 20 MG TABLET PO SCH (10:51)
[2022-12-01] MEDS: SULFAMETHOXAZOLE/TRIMETHOPR DS 1 TABLET PO SCH ×2 (10:51→21:51)
[2022-12-01] MEDS: DIVALPROEX SODIUM 500 MG TAB.SR.24H (DEPAKOTE ER) PO SCH (10:52)
[2022-12-01] MEDS: CEFEPIME 2 GM in D5W 100 ML IV SCH ×2 (10:53→21:52)
[2022-12-01] MEDS: FENTANYL CITRATE-0.9 % NACL/PF 100 ML IV PRN ×2 (12:58→18:33)
[2022-12-01] MEDS: MICAFUNGIN SODIUM 100 MG in NS 100 ML IV SCH (14:00)
[2022-12-01] MEDS: BUDESONIDE 0.5 MG/2 ML AMPUL.NEB INH SCH (19:58)
[2022-12-02] VITALS (31 sets, daily range): BP systolic 98–161
[2022-12-02] MEDS: FENTANYL CITRATE-0.9 % NACL/PF 100 ML IV PRN ×5 (00:28→21:51)
[2022-12-02] MEDS: ALBUTEROL SULFATE 0.083% 2.5 MG/3 ML VIAL.NEB INH SCH ×6 (03:02→23:09)
[2022-12-02] MEDS: IPRATROPIUM BROM 0.5 MG/2.5 ML VIAL.NEB (ATROVENT) INH SCH ×6 (03:03→23:09)
[2022-12-02 07:39] LABS: C-REACTIVE PROTEIN QUANT 9.7 mg/dL (0-0.5); CALCIUM 8.3 mg/dL (8.4-11.0); CREATININE 0.51 mg/dL (0.55-1.30)
[2022-12-02] MEDS: BUDESONIDE 0.5 MG/2 ML AMPUL.NEB INH SCH ×2 (08:03→19:30)
[2022-12-02 08:15] LABS: BASOPHILS % (AUTO) 0.2 % (0.0-2.0); EOSINOPHILS # (AUTO) 0.1 K/uL (0.0-0.4); EOSINOPHILS % (AUTO) 0.8 % (0.0-4.0); HEMATOCRIT 33.2 % (36-54); HEMOGLOBIN 11.1 g/dL (14.0-18.0); LYMPHOCYTES # (AUTO) 1.8 K/uL (1.0-5.5); LYMPHOCYTES % (AUTO) 16.4 % (20.5-51.5); MEAN CORPUSCULAR HEMOGLOBIN 31 pg (27-31); MEAN CORPUSCULAR HGB CONC 33 % (32-36); MEAN CORPUSCULAR VOLUME 94 fL (79.0-98.0); MONOCYTES # (AUTO) 0.9 K/uL (0.0-1.0); MONOCYTES % (AUTO) 8.4 % (1.7-9.3); NEUTROPHILS # (AUTO) 8.3 K/uL (1.8-7.7); NEUTROPHILS % (AUTO) 74.2 % (40.0-70.0); PLATELET COUNT (AUTO) 483 K/uL (130-430); RED BLOOD CELL COUNT(AUTO) 3.53 MIL/uL (4.2-6.2); RED CELL DISTRIBUTION WIDTH 13.1 % (9.0-15.0); WHITE BLOOD COUNT (AUTO) 11.2 K/uL (4.8-10.8)
[2022-12-02 08:36] LABS: ERYTHROCYTE SEDIMENTATION RATE 61 MM/HR (0-15)
[2022-12-02] MEDS: PROPOFOL DRIP 100 ML IV PRN ×5 (08:39→22:48)
[2022-12-02] MEDS: METHYLPREDNISOLONE SOD SUCC 40 MG/ML VIAL IVP SCH ×2 (08:55→20:40)
[2022-12-02] MEDS: PANTOPRAZOLE SODIUM 40 MG/VIAL (PROTONIX) IVP SCH ×2 (08:56→20:40)
[2022-12-02] MEDS: SULFAMETHOXAZOLE/TRIMETHOPR DS 1 TABLET PO SCH ×2 (08:56→20:41)
[2022-12-02] MEDS: DIVALPROEX SODIUM 500 MG TAB.SR.24H (DEPAKOTE ER) PO SCH (08:57)
[2022-12-02] MEDS: CITALOPRAM HYDROBROMIDE 20 MG TABLET PO SCH (08:57)
[2022-12-02] MEDS: CEFEPIME 2 GM in D5W 100 ML IV SCH ×2 (08:58→20:40)
[2022-12-02] MEDS: ENOXAPARIN SODIUM 40 MG/0.4 ML SYRINGE SUBCUT SCH (08:58)
--- NOTE | 2022-12-02 10:45 | NUR ---
Nutrition F/U RD reviewed pts current EMR including diet hx, physician notes, nursing notes, pertinent labs/meds/procedures, care trends and care activity. Subjective Information: RD rounded to ICU and spoke w/ pt's primary RN who reported that pt has been tolerating TF well, large BM reported yesterday (last documented BM 11/25). RN reports no fever today; pt has been having good output; is still on the vent @ 40%; pt still on TB iso; pt is on 30mL/hr Pivot 1.5. Per EMR review: Propofol currently running at 30.073 ml/hr (794 kcal/day); low GRV (under 25mL since 11/29). Pt is currently meeting nutritional needs. Current Diet Order/Nutrition Support: Pivot 1.5 at 55 ml/hr (goal), Free Water Flush: 150 ml Q4h via NGT x 3 days % PO intake: NPO Last BM: 11/25 x 1 per EMR; 12/01 per RN report Estimated Energy Expenditure (kcals/day) 1970 (PSU d/t critical illness; Ve: 9.5; Tmax: 37.6'C) Estimated Protein Required (g/day) 116-154 (1.5-2 gm/kg CBW d/t critical illness) Estimated Fluid Required (l/day) 2 (1 ml/kcal/day for adult maintenance) Problem/Etiology/Signs/Symptoms 1. Inadequate protein/energy intake r/t poor appetite AEB Inadequate PO intake reported by EMR and patient x3 days. *Improving w/ EN support 2. Altered nutrition-related lab values r/t renal dysfunction/current medical condition AEB labs (11/18/22) Na 135L, K 3.4L, Creat 1.72H, eGFR 50L. *Lab now improved, mostly WNL Expected Outcomes/Goals 1. EN support will meet >80% of estimated nutrient need without GI complications 2. Improved/stable nutrition-related labs 3. Maintain skin integrity Dietitian Recommendations * Pivot 1.5 at 30 ml/hr (new goal rate), Prosource BID, Free Water Flush: 150 ml Q4h via NGT Provides (w/ current propofol infusion rate): 1994 kcal/day, 98 gm protein/day, and 1440 ml free water/day (inc FWF) Meets: 101% of estimated caloric needs, 84% of lower end of estimated protein needs, and 72% of estimated fluid needs * If pt is extubated or prop turned off, please contact RD to re-assess nutritional needs Follow up * High Risk: RD to F/U within 2-3 days JULIA, MPH, RD
--- NOTE | 2022-12-02 10:47 | NUR ---
Dietitian Recommendations * Pivot 1.5 at 30 ml/hr (new goal rate), Prosource BID, Free Water Flush: 150 ml Q4h via NGT Provides (w/ current propofol infusion rate): 1994 kcal/day, 98 gm protein/day, and 1440 ml free water/day (inc FWF) Meets: 101% of estimated caloric needs, 84% of lower end of estimated protein needs, and 72% of estimated fluid needs * If pt is extubated or prop turned off, please contact RD to re-assess nutritional needs GS, MPH, RD Please refer to Nutrition F/U for further details. Thanks!
--- NOTE | 2022-12-02 11:00 | NUR ---
f/c replaced per ID MD request. pt tolerated well
[2022-12-02 11:07] LABS: HIV-1 RNA BY PCR <20 copies/mL (.)
[2022-12-02] MEDS: MICAFUNGIN SODIUM 100 MG in NS 100 ML IV SCH (15:27)
--- NOTE | 2022-12-02 19:25 | NUR ---
PM SHIFT ASSESSMENT PATIENT RESTING IN BED,VSS. RR EVEN AND UNLABORED. SR/ST ON MONITOR. TUBEFEEDING INFUSING. SKIN AND LINES CHECKED. SAFETY PRECAUTIONS IN PLACE, WILL CONTINUE TO MONITOR.
[2022-12-03] VITALS (34 sets, daily range): BP systolic 98–144
[2022-12-03] MEDS: PROPOFOL DRIP 100 ML IV PRN ×6 (02:26→18:39)
[2022-12-03] MEDS: ALBUTEROL SULFATE 0.083% 2.5 MG/3 ML VIAL.NEB INH SCH ×6 (03:05→23:10)
[2022-12-03] MEDS: IPRATROPIUM BROM 0.5 MG/2.5 ML VIAL.NEB (ATROVENT) INH SCH ×6 (03:06→23:10)
[2022-12-03] MEDS: FENTANYL CITRATE-0.9 % NACL/PF 100 ML IV PRN ×4 (03:29→20:33)
[2022-12-03 06:18] LABS: BASOPHILS # (AUTO) 0.1 K/uL (0.0-0.2); BASOPHILS % (AUTO) 0.6 % (0.0-2.0); EOSINOPHILS # (AUTO) 0.2 K/uL (0.0-0.4); EOSINOPHILS % (AUTO) 2.2 % (0.0-4.0); HEMATOCRIT 32.8 % (36-54); HEMOGLOBIN 11.1 g/dL (14.0-18.0); LYMPHOCYTES # (AUTO) 2.2 K/uL (1.0-5.5); MEAN CORPUSCULAR HEMOGLOBIN 32 pg (27-31); MEAN CORPUSCULAR HGB CONC 34 % (32-36); MEAN CORPUSCULAR VOLUME 94 fL (79.0-98.0); MONOCYTES # (AUTO) 1.1 K/uL (0.0-1.0); MONOCYTES % (AUTO) 9.7 % (1.7-9.3); NEUTROPHILS # (AUTO) 7.5 K/uL (1.8-7.7); NEUTROPHILS % (AUTO) 67.5 % (40.0-70.0); PLATELET COUNT (AUTO) 461 K/uL (130-430); RED CELL DISTRIBUTION WIDTH 12.9 % (9.0-15.0); WHITE BLOOD COUNT (AUTO) 11.2 K/uL (4.8-10.8)
[2022-12-03 06:41] LABS: ALBUMIN 2.2 g/dL (3.4-4.8); C-REACTIVE PROTEIN QUANT 5.4 mg/dL (0-0.5); CALCIUM 8.5 mg/dL (8.4-11.0); CREATININE 0.51 mg/dL (0.55-1.30); PHOSPHORUS 3.5 mg/dL (2.7-4.5); TOTAL BILIRUBIN 0.3 mg/dL (0.0-1.0)
[2022-12-03 06:51] LABS: ERYTHROCYTE SEDIMENTATION RATE 62 MM/HR (0-15)
[2022-12-03] MEDS: BUDESONIDE 0.5 MG/2 ML AMPUL.NEB INH SCH ×2 (07:19→19:55)
--- NOTE | 2022-12-03 08:15 | NUR ---
RESIDUAL ON OGT IS 30CC.
[2022-12-03] MEDS: CEFEPIME 2 GM in D5W 100 ML IV SCH ×2 (08:18→20:20)
[2022-12-03] MEDS: PANTOPRAZOLE SODIUM 40 MG/VIAL (PROTONIX) IVP SCH ×2 (08:18→20:22)
[2022-12-03] MEDS: ENOXAPARIN SODIUM 40 MG/0.4 ML SYRINGE SUBCUT SCH (08:19)
[2022-12-03] MEDS: CITALOPRAM HYDROBROMIDE 20 MG TABLET PO SCH (08:19)
[2022-12-03] MEDS: METHYLPREDNISOLONE SOD SUCC 40 MG/ML VIAL IVP SCH ×2 (08:19→20:22)
[2022-12-03] MEDS: SULFAMETHOXAZOLE/TRIMETHOPR DS 1 TABLET PO SCH ×2 (08:19→20:25)
[2022-12-03] MEDS: DIVALPROEX SODIUM 500 MG TAB.SR.24H (DEPAKOTE ER) PO SCH (08:19)
[2022-12-03] MEDS: MIDAZOLAM IN NACL,ISO-OSMOT/PF 100 ML IV PRN ×2 (09:31→19:07)
--- NOTE | 2022-12-03 10:36 | NUR ---
SPOKE TO MD DAVEY, UPDATED ON PATIENTS STATUS. ASKED ABOUT CT CHEST AND CT ABD/PELVIS PENDING. CALLED OSWALDO FROM RADIOLOGY, TO ATTEMPT TO COMPLETE BOTH CT SCANS TODAY. TO CALL ME BACK WITH ETA. PT VSS. TRUMAN NOTED. WILL CONT TO MONITOR PT.
[2022-12-03] MEDS: FLUCONAZOLE 200 mg/ NS 100 ML IV SCH (12:07)
--- NOTE | 2022-12-03 12:22 | NUR ---
PER PATRICK IN LAB, CORRECTED HISTOPLASMA URINE ANTIGEN ORDER ORDERED BY MD DAVEY THIS AM. URINE IN PROCESS.
--- NOTE | 2022-12-03 15:10 | NUR ---
TRACH DR RECIO SPOKE WITH THE MOTHER AT BEDSIDE AND SUGGESTED TRACH. DR MACIAS PAGED TO GET GENERAL SURGERY CONSULT.
--- NOTE | 2022-12-03 20:00 | NUR ---
PM SHIFT ASSESSMENT: RECEIVED PATIENT IN SUPINE POSITION, ETT TO VENT, TOLERATED THE SETTING, SEDATED WITH FENTANYL, VERSED, PROPOFOL INFUSING AT JOON MIDLINE,ON OG FEEDING WITH PIVOT AT 30ML/HR, WALLER CATH IS IN PLACE DRAINING TO GRAVITY, WILL CONTINUE TO MONITOR.
--- NOTE | 2022-12-03 21:00 | NUR ---
START PRECEDEX DRIP AND WILL WEAN DOWN PROPOFOL TOLERATE PER MD REQUEST.
--- NOTE | 2022-12-03 22:00 | NUR ---
HOB ELEVATED AT ALL THE TIME. OG TUBE FEEDING TOLERATED, RESIDUE 20 ML AT THIS TIME , FLUSHED WITH H2O.
[2022-12-04] VITALS (30 sets, daily range): BP systolic 102–136
--- NOTE | 2022-12-04 01:38 | NUR ---
TURN AND REPOSITION Q2H TO KEEP SKIN CLEAN AND DRY, ORAL CARE, WALLER CANR, SKIN CARE GIVEN.
[2022-12-04] MEDS: FENTANYL CITRATE-0.9 % NACL/PF 100 ML IV PRN ×4 (01:51→22:50)
[2022-12-04] MEDS: MIDAZOLAM IN NACL,ISO-OSMOT/PF 100 ML IV PRN ×4 (01:53→22:49)
[2022-12-04] MEDS: ALBUTEROL SULFATE 0.083% 2.5 MG/3 ML VIAL.NEB INH SCH ×6 (03:20→23:17)
[2022-12-04] MEDS: IPRATROPIUM BROM 0.5 MG/2.5 ML VIAL.NEB (ATROVENT) INH SCH ×6 (03:20→23:00)
[2022-12-04 05:56] LABS: BASOPHILS % (AUTO) 0.5 % (0.0-2.0); EOSINOPHILS # (AUTO) 0.1 K/uL (0.0-0.4); EOSINOPHILS % (AUTO) 1.1 % (0.0-4.0); HEMATOCRIT 31.3 % (36-54); HEMOGLOBIN 10.6 g/dL (14.0-18.0); LYMPHOCYTES # (AUTO) 1.9 K/uL (1.0-5.5); LYMPHOCYTES % (AUTO) 19.4 % (20.5-51.5); MEAN CORPUSCULAR HEMOGLOBIN 32 pg (27-31); MEAN CORPUSCULAR HGB CONC 34 % (32-36); MEAN CORPUSCULAR VOLUME 94 fL (79.0-98.0); MONOCYTES # (AUTO) 0.6 K/uL (0.0-1.0); MONOCYTES % (AUTO) 6.4 % (1.7-9.3); NEUTROPHILS # (AUTO) 7.3 K/uL (1.8-7.7); NEUTROPHILS % (AUTO) 72.6 % (40.0-70.0); PLATELET COUNT (AUTO) 436 K/uL (130-430); RED BLOOD CELL COUNT(AUTO) 3.32 MIL/uL (4.2-6.2); RED CELL DISTRIBUTION WIDTH 13.2 % (9.0-15.0)
[2022-12-04 06:59] LABS: C-REACTIVE PROTEIN QUANT 2.7 mg/dL (0-0.5); CALCIUM 8.3 mg/dL (8.4-11.0); CREATININE 0.53 mg/dL (0.55-1.30)
[2022-12-04] MEDS: BUDESONIDE 0.5 MG/2 ML AMPUL.NEB INH SCH ×2 (07:48→19:48)
[2022-12-04 07:49] LABS: ERYTHROCYTE SEDIMENTATION RATE 51 MM/HR (0-15)
--- NOTE | 2022-12-04 08:00 | NUR ---
CARE ENDORSED TO RN HERBERT. TO ASSUME CARE. PT VSS. NAD NOTED. ES RT BEDSIDE TO IMPLEMENT SBT.
--- NOTE | 2022-12-04 08:09 | NUR ---
Report received, on airborne/contact iso for TB rule out. He was intubated on 11/20 ETT 7.5 26cm @ LL to vent, sedated on , fentanyl @ 200mcg/hr, and versed @ 15mg/hr and precedex at 0.4mcg/kg/hr @7.7ml/hr. Pt also on NS at 5 ml/hr. Vent mode: volume control 24/400,FiO2 40%, RR 14, peep 5. OGT in place and secured running pivot 1.5 at 30 cc/hr with FWF 150ml q4 hrs tolerating well. FC patent draining with yellow urine, placed on 11/20. Right UA midline placed 11/19 infusing, C/D/I. Bernard mwristrestraints on, skin w/d/i. RT in room to initiate breathing trials.Will continue to monitor closely.
[2022-12-04] MEDS: CEFEPIME 2 GM in D5W 100 ML IV SCH ×2 (09:15→20:18)
[2022-12-04] MEDS: SULFAMETHOXAZOLE/TRIMETHOPR DS 1 TABLET PO SCH ×2 (09:15→20:18)
[2022-12-04] MEDS: PANTOPRAZOLE SODIUM 40 MG/VIAL (PROTONIX) IVP SCH ×2 (09:15→20:18)
[2022-12-04] MEDS: DIVALPROEX SODIUM 500 MG TAB.SR.24H (DEPAKOTE ER) PO SCH (09:16)
[2022-12-04] MEDS: METHYLPREDNISOLONE SOD SUCC 40 MG/ML VIAL IVP SCH ×2 (09:16→20:18)
[2022-12-04] MEDS: ENOXAPARIN SODIUM 40 MG/0.4 ML SYRINGE SUBCUT SCH (09:16)
[2022-12-04] MEDS: CITALOPRAM HYDROBROMIDE 20 MG TABLET PO SCH (09:16)
--- NOTE | 2022-12-04 09:41 | NUR ---
Nutrition F/U RD reviewed pts current EMR including diet hx, physician notes, nursing notes, pertinent labs/meds/procedures, care trends and care activity. Subjective Information: RD rounded to ICU and spoke w/ pt's primary RN who reported that pt is now off propofol completely, is only on versed and fentanyl. She will try and titrate down today and hopefully move closer to extubation. Pt is currently on breathing trial and is doing well. Pt is on restraints. RD told RN that since prop is off she would re-assess nutritional needs and likely increase the rate. Per EMR review: low GRV (under 30mL since 11/29), abd soft, non-distended w/ active bowel sounds. Pt is not currently meeting nutritional needs. Current Diet Order/Nutrition Support: Pivot 1.5 at 30 ml/hr (goal), Prosource BID, Free Water Flush: 150 ml Q4h via NGT x 2 days % PO intake: NPO Last BM: 12/01 per RN report Estimated Energy Expenditure (kcals/day) 1970 (PSU 2002b d/t critical illness; Ve: 9.5; Tmax: 37.6'C) Estimated Protein Required (g/day) 116-154 (1.5-2 gm/kg CBW d/t critical illness) Estimated Fluid Required (l/day) 1.9 (1 ml/kcal/day for adult maintenance) Problem/Etiology/Signs/Symptoms 1. Inadequate protein/energy intake r/t poor appetite AEB Inadequate PO intake reported by EMR and patient x3 days. *Improving w/ EN support 2. Altered nutrition-related lab values r/t renal dysfunction/current medical condition AEB labs (12/04/22) Na 135L, K 3.6 WNL, Creat 0.53L, eGFR 194 WNL. *Labs now improved, mostly WNL Expected Outcomes/Goals 1. EN support will meet >80% of estimated nutrient need without GI complications 2. Improved/stable nutrition-related labs 3. Maintain skin integrity Dietitian Recommendations * Pivot 1.5 at 50 ml/hr (new goal rate), Prosource BID, Free Water Flush: 150 ml Q4h via NGT Provides (w/ prosource BID): 1920 kcal/day, 143 gm protein/day, and 1800 ml free water/day (inc FWF) Meets: 97% of estimated caloric needs, 93% of upper end of estimated protein needs, and 95% of estimated fluid needs * If pt is extubated, please contact RD to re-assess nutritional needs Follow up * High Risk: RD to F/U within 2-3 days JULIA, MPH, RD
--- NOTE | 2022-12-04 09:45 | NUR ---
Dietitian Recommendations * Pivot 1.5 at 50 ml/hr (new goal rate), Prosource BID, Free Water Flush: 150 ml Q4h via NGT Provides (w/ prosource BID): 1920 kcal/day, 143 gm protein/day, and 1800 ml free water/day (inc FWF) Meets: 97% of estimated caloric needs, 93% of upper end of estimated protein needs, and 95% of estimated fluid needs * If pt is extubated, please contact RD to re-assess nutritional needs GS, MPH, RD Please refer to Nutrition F/U for further details. Thanks!
--- NOTE | 2022-12-04 10:04 | NUR ---
RT NOTES 0958 PT PLACED BACK TO , TOLERATED WEANING TRIAL.RN AWARE. Addendum: 12/04/22 at 1004 by Marla Christine RT Amended: Links added.
--- NOTE | 2022-12-04 11:26 | NUR ---
THE PATIENTS MOTHER CAME BY AND I PROVIDED HER WITH UPDATES AND ALL QUESTIONS/CONCERNS ADDRESSED.
[2022-12-04] MEDS: FLUCONAZOLE 200 mg/ NS 100 ML IV SCH (12:30)
--- NOTE | 2022-12-04 14:00 | NUR ---
DECREASED FENTANYL TO 100MCG/HR, DECREASED VERSED TO 10MG/HR, TOLERATING WELL.
--- NOTE | 2022-12-04 17:31 | NUR ---
ATTEMPTED TO DECREASE FENTANYL TO 50MCG/HR AND VERSED TO 5MG/HR, PT DID NOT TOLERATE WELL, AGITATED/KICKING. SETTING OFF VENTILATOR.
--- NOTE | 2022-12-04 17:38 | NUR ---
NO ACUTE CHANGES IN CONDITION, PT IN NO APPARENT DISTRESS. VSS, TOLERATING VENT SETTINGS WELL.
--- NOTE | 2022-12-04 18:18 | NUR ---
ORAL CARE PROVIDED AGAIN, PT MOVING HEAD LEFT TO RIGHT, FIGHTING VENT AT THIS TIME. ONCE STOPPED, PT RETURNED TO CALM STATE. VSS.
--- NOTE | 2022-12-04 20:00 | NUR ---
PM SHIFT ASSESSMENT: RECEIVED PATIENT IN BED, AWAKE, ABLE TO FOLLOW SIMPLE COMMEND , ETT TO VENT AND TOLERATED SETTING, OG TUBE FEEDING WITH PIVOT AT 50 ML/HR, SEDATED WITH VERSED 10 MG/HR, FENTANYL 100 MCG/HR, PRECEDEX 0.4 MCG/KG/HR , WALLER CATH IN PLACE AND DRAINING TO GRAVITY, WILL CONTINUE TO CLOSE MONITOR.
--- NOTE | 2022-12-04 21:00 | NUR ---
BM X1 LARGE AMOUNT OF YELLOW STOOL, CHANGED ALL LINEN AND GOWN , GIVEN BED BATH AND CHG BATH , WALLER CARE GIVEN, ORAL CARE GIVEN.
--- NOTE | 2022-12-04 21:30 | NUR ---
MOM VISITED AND UPDATE HER THE PLAN OF CARE. QUESTION ANSWERED.
[2022-12-05] VITALS (29 sets, daily range): BP systolic 104–168
--- NOTE | 2022-12-05 02:40 | NUR ---
SPOKE W/ DR DURAN. FENTANYL AND VERSED STOPPED, PRECEDEX STARTED. PT ON NC 3 LPM, PRESENTS W/ INTERMITTED AGITATION. Addendum: 12/06/22 at 0331 by Kenneth Juarez RN RN ENTERED WRONG TIME
[2022-12-05] MEDS: IPRATROPIUM BROM 0.5 MG/2.5 ML VIAL.NEB (ATROVENT) INH SCH ×6 (03:00→23:00)
[2022-12-05] MEDS: ALBUTEROL SULFATE 0.083% 2.5 MG/3 ML VIAL.NEB INH SCH ×6 (03:11→23:00)
[2022-12-05] MEDS: FENTANYL CITRATE-0.9 % NACL/PF 100 ML IV PRN ×3 (04:27→23:23)
[2022-12-05 06:21] LABS: BASOPHILS # (AUTO) 0.1 K/uL (0.0-0.2); BASOPHILS % (AUTO) 0.7 % (0.0-2.0); EOSINOPHILS # (AUTO) 0.1 K/uL (0.0-0.4); EOSINOPHILS % (AUTO) 1.1 % (0.0-4.0); HEMATOCRIT 32.5 % (36-54); HEMOGLOBIN 10.9 g/dL (14.0-18.0); LYMPHOCYTES # (AUTO) 2.1 K/uL (1.0-5.5); LYMPHOCYTES % (AUTO) 16.5 % (20.5-51.5); MEAN CORPUSCULAR HEMOGLOBIN 31 pg (27-31); MEAN CORPUSCULAR HGB CONC 33 % (32-36); MEAN CORPUSCULAR VOLUME 94 fL (79.0-98.0); MONOCYTES # (AUTO) 0.6 K/uL (0.0-1.0); MONOCYTES % (AUTO) 5.1 % (1.7-9.3); NEUTROPHILS # (AUTO) 9.8 K/uL (1.8-7.7); NEUTROPHILS % (AUTO) 76.6 % (40.0-70.0); PLATELET COUNT (AUTO) 428 K/uL (130-430); RED BLOOD CELL COUNT(AUTO) 3.45 MIL/uL (4.2-6.2); WHITE BLOOD COUNT (AUTO) 12.8 K/uL (4.8-10.8)
[2022-12-05 06:44] LABS: ERYTHROCYTE SEDIMENTATION RATE 57 MM/HR (0-15)
[2022-12-05 07:03] LABS: ALBUMIN 2.5 g/dL (3.4-4.8); C-REACTIVE PROTEIN QUANT 2.2 mg/dL (0-0.5); CALCIUM 8.5 mg/dL (8.4-11.0); CREATININE 0.54 mg/dL (0.55-1.30); PHOSPHORUS 3.8 mg/dL (2.7-4.5); TOTAL BILIRUBIN 0.4 mg/dL (0.0-1.0)
[2022-12-05] MEDS ORDERED: IPRATROPIUM BROM 0.5 MG/2.5 ML VIAL.NEB (ATROVENT) INH ONE ×3 (07:06→14:48)
[2022-12-05] MEDS: BUDESONIDE 0.5 MG/2 ML AMPUL.NEB INH SCH ×2 (07:17→19:45)
--- NOTE | 2022-12-05 08:22 | NUR ---
rt notes 0822 Pt placed on CPAP 5, PS10 40% FIO2. Pt saturating 100%, HR 81. Pt pulling 691vt, pt RR 12. Pt alert,awake,following command, moving around a little bit but able to understand not to pull ett. RSBI=22. 0930 ABG on CPAP drawn. Pt placed back to AC per pt requested. No distress at this time. will cont to monitor pt. TROY Velasquez made aware. will await for Diana Hernandez order.
[2022-12-05] MEDS: MIDAZOLAM IN NACL,ISO-OSMOT/PF 100 ML IV PRN (09:55)
[2022-12-05] MEDS: ENOXAPARIN SODIUM 40 MG/0.4 ML SYRINGE SUBCUT SCH (10:19)
[2022-12-05] MEDS: CITALOPRAM HYDROBROMIDE 20 MG TABLET PO SCH (10:19)
[2022-12-05] MEDS: SULFAMETHOXAZOLE/TRIMETHOPR DS 1 TABLET PO SCH (10:19)
[2022-12-05] MEDS: DIVALPROEX SODIUM 500 MG TAB.SR.24H (DEPAKOTE ER) PO SCH (10:20)
[2022-12-05] MEDS: CEFEPIME 2 GM in D5W 100 ML IV SCH ×2 (10:22→22:30)
[2022-12-05] MEDS: PANTOPRAZOLE SODIUM 40 MG/VIAL (PROTONIX) IVP SCH ×2 (10:22→23:00)
[2022-12-05] MEDS: METHYLPREDNISOLONE SOD SUCC 40 MG/ML VIAL IVP SCH ×2 (10:23→22:59)
--- NOTE | 2022-12-05 11:55 | NUR ---
rt notes 1155 MD Hernandez ordered extubation on pt, Pt got extubated, Placed on 4LNC and routine breathing tx given. Pt still appeared to be groggy and a little restless. Encouraged and coached pt to do depp breathing and to calm down. No resp distress noted.HR 115, RR 18-20, Saturation 98%. will cont to monitor pt. TROY Velasquez at bedside while extubation.
[2022-12-05] MEDS: FLUCONAZOLE 200 mg/ NS 100 ML IV SCH (14:25)
--- NOTE | 2022-12-05 19:30 | NUR ---
PT RECVD FROMDAY SHIFT RN. PTWAS EXTUBATED TODAY AND IS CURRENTLY ON FENT AND VERSED FOR SEDATION. PT PRESENTS AAOX2, SOMEWHAT AGITATED AND INSOFT RESTRAINTS. PT ON NC @ 3LPM, VSS
--- NOTE | 2022-12-05 22:30 | NUR ---
PT'S RESTRAINTS REMOVED, PT RESPONDING WELL, FAMILY BEDSIDE
--- NOTE | 2022-12-05 23:45 | NUR ---
PT SOILED BED. PT CLEANED NEW LINENS AND GOWN PROVIDED
[2022-12-06] VITALS (24 sets, daily range): BP systolic 107–153
[2022-12-06] MEDS: MIDAZOLAM IN NACL,ISO-OSMOT/PF 100 ML IV PRN (02:15)
--- NOTE | 2022-12-06 02:40 | NUR ---
SPOKE W/ DR DURAN. FENTANYL AND VERSED STOPPED, PRECEDEX STARTED. PT ON NC 3 LPM, PRESENTS W/ INTERMITTED AGITATION.
[2022-12-06] MEDS: IPRATROPIUM BROM 0.5 MG/2.5 ML VIAL.NEB (ATROVENT) INH SCH ×6 (03:00→23:29)
--- NOTE | 2022-12-06 03:30 | NUR ---
PT SOILED BED, PT CLEANED AND NEW LINENS PROVIDED
[2022-12-06 06:16] LABS: C-REACTIVE PROTEIN QUANT 4.6 mg/dL (0-0.5); CALCIUM 9.1 mg/dL (8.4-11.0); CREATININE 0.62 mg/dL (0.55-1.30)
[2022-12-06 07:41] LABS: BASOPHILS # (AUTO) 0.1 K/uL (0.0-0.2); BASOPHILS % (AUTO) 0.8 % (0.0-2.0); EOSINOPHILS # (AUTO) 0.7 K/uL (0.0-0.4); EOSINOPHILS % (AUTO) 4.2 % (0.0-4.0); HEMATOCRIT 34.6 % (36-54); HEMOGLOBIN 11.6 g/dL (14.0-18.0); LYMPHOCYTES # (AUTO) 4.1 K/uL (1.0-5.5); MEAN CORPUSCULAR HEMOGLOBIN 32 pg (27-31); MEAN CORPUSCULAR HGB CONC 34 % (32-36); MEAN CORPUSCULAR VOLUME 94 fL (79.0-98.0); MONOCYTES # (AUTO) 1.8 K/uL (0.0-1.0); MONOCYTES % (AUTO) 9.9 % (1.7-9.3); NEUTROPHILS # (AUTO) 11.1 K/uL (1.8-7.7); NEUTROPHILS % (AUTO) 62.1 % (40.0-70.0); PLATELET COUNT (AUTO) 433 K/uL (130-430); RED CELL DISTRIBUTION WIDTH 13.3 % (9.0-15.0)
--- NOTE | 2022-12-06 08:00 | NUR ---
LYNSEY PIZARRO RN AND STUDENT NURSE MADAI MANRIQUE ARE IN CHARGE OF THIS PATIENT. PATIENT IS AWAKE, BUT DROWSY, ALERT, AND COOPERATIVE. PATIENT FOLLOWS COMMANDS. PATIENT VITAL SIGNS ARE STABLE ON PRECIDEX DRIP, WILL TITRATE TO DC SOON. PATIENT APPEARS COMFORTABLE AT THIS TIME. CONTINUE OBSERVATION. AFEBRILE. PATIENT APPEARS TO BE IN NO DISTRESS AT THIS TIME. TROY CATES. KHALIF, SN.
[2022-12-06] MEDS: ALBUTEROL SULFATE 0.083% 2.5 MG/3 ML VIAL.NEB INH SCH ×5 (08:08→23:29)
[2022-12-06] MEDS: BUDESONIDE 0.5 MG/2 ML AMPUL.NEB INH SCH ×2 (08:09→19:00)
[2022-12-06] MEDS: CITALOPRAM HYDROBROMIDE 20 MG TABLET PO SCH (09:00)
[2022-12-06] MEDS: DIVALPROEX SODIUM 500 MG TAB.SR.24H (DEPAKOTE ER) PO SCH (09:00)
[2022-12-06 09:08] LABS: WHITE BLOOD COUNT (AUTO) 17.9 K/uL (4.8-10.8)
[2022-12-06] MEDS ORDERED: POTASSIUM CHLORIDE 20 MEQ/PKT PACKET GT ONE (09:30)
[2022-12-06] MEDS: PANTOPRAZOLE SODIUM 40 MG/VIAL (PROTONIX) IVP SCH ×2 (09:54→20:58)
[2022-12-06] MEDS: METHYLPREDNISOLONE SOD SUCC 40 MG/ML VIAL IVP SCH (09:54)
[2022-12-06] MEDS: ENOXAPARIN SODIUM 40 MG/0.4 ML SYRINGE SUBCUT SCH (09:55)
[2022-12-06] MEDS: FLUCONAZOLE 200 mg/ NS 100 ML IV SCH (11:57)
[2022-12-06 11:58] LABS: ERYTHROCYTE SEDIMENTATION RATE 70 MM/HR (0-15)
[2022-12-06] MEDS ORDERED: COMMUNICATION ORDER XX ONE (18:30)
--- NOTE | 2022-12-06 19:00 | NUR ---
PER FAMILY REQUEST, PT GIVEN DEPAKOTE AND CELEXA TONIGHT THEY WERE HELD IN A.M.-TOMORROW, PT FAMILY WILL BRING LEXAPRO 10 MG DOSE//HOLD CELEXA DOSE IN A.M//MW
--- NOTE | 2022-12-06 19:20 | NUR ---
Received report from RYAN Contreras WESTERN TACK ASSEMBLY LINE WORKER. Initial assessment done. Please Flowsheet for complete Physical assessment.
[2022-12-06] MEDS: ONDANSETRON HCL 4 MG/2 ML VIAL IVP PRN (20:23)
--- NOTE | 2022-12-06 21:00 | NUR ---
Due medications given, complaint of Not feeling well. [place] nauseated. Given Zofran.
--- NOTE | 2022-12-06 23:10 | NUR ---
Patient Requested Broth, but vomited 3x even after Zofran, Gave ice chips to help with vomiting, which gave a little Relief.
[2022-12-07] VITALS (19 sets, daily range): BP systolic 115–150
--- NOTE | 2022-12-07 02:00 | NUR ---
Patient sleeping quietly. NO more Nausea or vomiting noted.
[2022-12-07] MEDS: ALBUTEROL SULFATE 0.083% 2.5 MG/3 ML VIAL.NEB INH SCH ×4 (03:00→15:00)
[2022-12-07] MEDS: IPRATROPIUM BROM 0.5 MG/2.5 ML VIAL.NEB (ATROVENT) INH SCH ×4 (03:00→15:00)
[2022-12-07] MEDS: ONDANSETRON HCL 4 MG/2 ML VIAL IVP PRN (03:43)
--- NOTE | 2022-12-07 05:35 | NUR ---
Offered patient if He wants to be Clean, Refuse. Asked if he is Sure? And if He change his mind a little Later He can just call me ( I'm just outside his room).
[2022-12-07 06:31] LABS: BASOPHILS # (AUTO) 0.2 K/uL (0.0-0.2); BASOPHILS % (AUTO) 0.9 % (0.0-2.0); EOSINOPHILS # (AUTO) 0.7 K/uL (0.0-0.4); EOSINOPHILS % (AUTO) 3.5 % (0.0-4.0); HEMOGLOBIN 11.1 g/dL (14.0-18.0); LYMPHOCYTES # (AUTO) 3.5 K/uL (1.0-5.5); LYMPHOCYTES % (AUTO) 17.6 % (20.5-51.5); MEAN CORPUSCULAR HEMOGLOBIN 31 pg (27-31); MEAN CORPUSCULAR HGB CONC 34 % (32-36); MEAN CORPUSCULAR VOLUME 93 fL (79.0-98.0); MONOCYTES # (AUTO) 1.2 K/uL (0.0-1.0); MONOCYTES % (AUTO) 5.9 % (1.7-9.3); NEUTROPHILS # (AUTO) 14.5 K/uL (1.8-7.7); NEUTROPHILS % (AUTO) 72.1 % (40.0-70.0); PLATELET COUNT (AUTO) 415 K/uL (130-430); RED BLOOD CELL COUNT(AUTO) 3.54 MIL/uL (4.2-6.2); RED CELL DISTRIBUTION WIDTH 13.1 % (9.0-15.0); WHITE BLOOD COUNT (AUTO) 20.1 K/uL (4.8-10.8)
[2022-12-07 06:42] LABS: C-REACTIVE PROTEIN QUANT 16.4 mg/dL (0-0.5); CALCIUM 8.9 mg/dL (8.4-11.0); CREATININE 0.66 mg/dL (0.55-1.30)
[2022-12-07] MEDS: BUDESONIDE 0.5 MG/2 ML AMPUL.NEB INH SCH (07:00)
--- NOTE | 2022-12-07 07:25 | NUR ---
Report endorsed to RYAN Gray PARACHUTE HARNESS RIGGER. All questions answered.
[2022-12-07] MEDS: CITALOPRAM HYDROBROMIDE 20 MG TABLET PO SCH (08:13)
[2022-12-07 08:32] LABS: ERYTHROCYTE SEDIMENTATION RATE 66 MM/HR (0-15)
[2022-12-07] MEDS: ESCITALOPRAM 10 MG PO SCH (09:00)
[2022-12-07] MEDS: METHYLPREDNISOLONE SOD SUCC 40 MG/ML VIAL IVP SCH (09:00)
[2022-12-07] MEDS: DIVALPROEX SODIUM 500 MG TAB.SR.24H (DEPAKOTE ER) PO SCH (09:00)
[2022-12-07] MEDS: ENOXAPARIN SODIUM 40 MG/0.4 ML SYRINGE SUBCUT SCH (09:00)
[2022-12-07] MEDS: PANTOPRAZOLE SODIUM 40 MG/VIAL (PROTONIX) IVP SCH ×2 (09:00→20:33)
--- NOTE | 2022-12-07 10:21 | NUR ---
Nutrition F/U RD reviewed pts current EMR including diet hx, physician notes, nursing notes, pertinent labs/meds/procedures, care trends and care activity. Subjective Information: 12/05: Pt extubated! RD rounded to ICU and spoke w/ RN. RN reports that pt had broth yesterday and vomited a few times. RN said they are taking feedings slowly d/t the N/V and that he has a CT scan today. RN went into the room and s/w pt and his sister. He is feeling very hungry; RD explained why we want to be slow with feedings. RD said likely after CT, he can resume CLD and if he tolerates that, then full liquid diet tomorrow maybe. 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 His sister was anxious for him to get a swallow eval so his diet could progress. RD checked his weight on [id number]#/68 kg. Pt reports that he normally weighs 170#. Pt has lost 20# during his hospital stay. Per EMR review: abd soft, non-distended w/ hyperactive bowel sounds; LABS: WBC 20.1 H, K+ 3.1, BG 104 H, CRP 16.4 H. Pt is not currently meeting nutritional needs. Current Diet Order/Nutrition Support: Clear liquid diet x 1 day % PO intake: Fair avg of 67% x 3 meals Last BM: 12/06 x 4 per EMR review NEW Estimated Energy Expenditure (kcals/day) 3916-6123 kcal (30-35 kcal/kg CBW [68kg] for steady weight gain) Estimated Protein Required (g/day) 116-154 (1.5-2 gm/kg CBW d/t critical illness) Estimated Fluid Required (l/day) 2.0-2.3L (1 ml/kcal/day for adult maintenance) Problem/Etiology/Signs/Symptoms 1. Inadequate protein/energy intake r/t poor appetite AEB Inadequate PO intake reported by EMR and patient x3 days. *ongoing 2. Altered nutrition-related lab values r/t renal dysfunction/current medical condition AEB labs (12/04/22) Na 135L, K 3.6 WNL, Creat 0.53L, eGFR 194 WNL. *Labs now improved, mostly WNL Expected Outcomes/Goals 1. EN support will meet >80% of estimated nutrient need without GI complications 2. Improved/stable nutrition-related labs 3. Maintain skin integrity Dietitian Recommendations * Resume CLD after CT scan. If pt tolerates then advance to full liquid diet * Recommend swallow evaluation Follow up * High Risk: RD to F/U within 2-3 days JULIA, MPH, RD
--- NOTE | 2022-12-07 10:23 | NUR ---
Dietitian Recommendations * Resume CLD after CT scan. If pt tolerates then advance to full liquid diet * Recommend swallow evaluation * Encourage good PO intakes GS, MPH, RD Please refer to Nutrition F/U for further details. Thanks!
[2022-12-07] MEDS: FLUCONAZOLE 200 mg/ NS 100 ML IV SCH (12:51)
--- NOTE | 2022-12-07 15:00 | NUR ---
CARE ENDORSED RECEIVED PT IN BED NO DISTRES AT THIS TIME DENIES PAIN WILL CONTINUE TO MONITOR AND ASSESS
--- NOTE | 2022-12-07 16:08 | NUR ---
RT NOTES Dr David fried, made aware of what pt stated regarding HHN tx ("he does not like how it makes him feel after"), dr said to change to PRN.
[2022-12-07] MEDS ORDERED: POTASSIUM CHLORIDE 20 MEQ TAB.PRT.SR PO ONE (16:30)
[2022-12-07] MEDS ORDERED: ALBUTEROL SULFATE 0.083% 2.5 MG/3 ML VIAL.NEB INH SCH (19:00)
[2022-12-07] MEDS ORDERED: IPRATROPIUM BROM 0.5 MG/2.5 ML VIAL.NEB (ATROVENT) INH PRN (19:00)
--- NOTE | 2022-12-07 19:08 | NUR ---
CARE ENDORSED TO NOC SHIFT RN
--- NOTE | 2022-12-07 19:15 | NUR ---
change of shift.pt.presents quiescent affect;calm,resting.pt.transfer from unit;icu.pt.presents iv access picc line location rt.bicept intact.iv lock status.no c/o pain,nausea.pt.to initiate physical therapy session in am.pt.to remain bedrest activity status.general status stable.respiratory status stable;unlabored@room air 02-sat%=98%.call light/telephone w/in access of the pt.
--- NOTE | 2022-12-07 20:00 | NUR ---
pt.assessed.v/s assessed values wnl.o2-sat%=98%.no c/o pain,nausea.na.pt.apprised snacks/beverages are available w/in the shift.no requests posited@this hour.pt.assessed for cleanliness.pt.repositioned.call light/telephone placed w/in access of the pt.
--- NOTE | 2022-12-07 21:00 | NUR ---
2100p medication administered.protonix ivp.no c/o pain,nausea.pt.requested blanket provided.call light/telephone w/in access of the pt.
--- NOTE | 2022-12-07 22:00 | NUR ---
pt.assessed.pt.quiescent.no c/o pain,nausea.pt.provided ice water.pt.requested medication;sleep. ;a paged.pt.assessed for cleanliness.pt.repositioned.call light/telephone placed w/in access of the pt.
[2022-12-07] MEDS: traZODone HCL 50 MG TABLET (DESYREL) PO PRN (23:30)
--- NOTE | 2022-12-07 23:30 | NUR ---
trazodone;50mg;sleep administered. returned the page apprised of the pt's requests ordered trazodone;50mg po qhs/prn;sleep.
--- NOTE | 2022-12-08 | NUR ---
pt.assessed.pt.quiescent.per flacc pain mgx pt.absent facial grimaces/body posturing.pt.assessed for cleanliness. pt.repositioned.call light/telephone placed w/in access of the pt.
[2022-12-08 00:43] VITALS: BP_SYST 125
[2022-12-08] MEDS: traZODone HCL 50 MG TABLET (DESYREL) PO PRN (01:19)
--- NOTE | 2022-12-08 02:00 | NUR ---
pt.assessed.pt.quiescent.per flacc pain mgx pt.absent facial grimaces/body posturing.pt.assessed for cleanliness. pt.repositioned.call light/telephone placed w/in access of the pt.
--- NOTE | 2022-12-08 04:00 | NUR ---
pt.assessed.pt.quiescent.per flacc pain mgx pt.absent facial grimaces/body posturing.pt.assessed for cleanliness. pt.repositioned.call light/telephone placed w/in access of the pt.
[2022-12-08 05:33] LABS: BASOPHILS # (AUTO) 0.2 K/uL (0.0-0.2); BASOPHILS % (AUTO) 0.8 % (0.0-2.0); EOSINOPHILS # (AUTO) 1.6 K/uL (0.0-0.4); EOSINOPHILS % (AUTO) 7.7 % (0.0-4.0); HEMOGLOBIN 11.2 g/dL (14.0-18.0); LYMPHOCYTES % (AUTO) 14.6 % (20.5-51.5); MEAN CORPUSCULAR HEMOGLOBIN 31 pg (27-31); MEAN CORPUSCULAR HGB CONC 34 % (32-36); MEAN CORPUSCULAR VOLUME 93 fL (79.0-98.0); MONOCYTES # (AUTO) 1.5 K/uL (0.0-1.0); MONOCYTES % (AUTO) 7.1 % (1.7-9.3); NEUTROPHILS # (AUTO) 14.2 K/uL (1.8-7.7); NEUTROPHILS % (AUTO) 69.8 % (40.0-70.0); PLATELET COUNT (AUTO) 375 K/uL (130-430); RED BLOOD CELL COUNT(AUTO) 3.56 MIL/uL (4.2-6.2); RED CELL DISTRIBUTION WIDTH 13.1 % (9.0-15.0); WHITE BLOOD COUNT (AUTO) 20.4 K/uL (4.8-10.8)
--- NOTE | 2022-12-08 06:00 | NUR ---
pt.assessed.no c/o pain,nausea.no requests posited@this hour.pt.assessed for cleanliness.pt.repositioned.call light/telephone placed w/in access of the pt.
[2022-12-08 06:02] LABS: ALBUMIN 2.6 g/dL (3.4-4.8); C-REACTIVE PROTEIN QUANT 12.9 mg/dL (0-0.5); CALCIUM 8.8 mg/dL (8.4-11.0); CREATININE 0.55 mg/dL (0.55-1.30); PHOSPHORUS 3.2 mg/dL (2.7-4.5); TOTAL BILIRUBIN 0.7 mg/dL (0.0-1.0)
[2022-12-08 07:16] LABS: ERYTHROCYTE SEDIMENTATION RATE 77 MM/HR (0-15)
[2022-12-08] MEDS: BUDESONIDE 0.5 MG/2 ML AMPUL.NEB INH SCH ×2 (07:19→19:41)
--- NOTE | 2022-12-08 07:19 | NUR ---
Opening note received sbar from night RN. Patient in bed, respirations even, non labored, bed in low and locked position call light within reach.
[2022-12-08 08:00] VITALS: BP_SYST 135
[2022-12-08] MEDS: PANTOPRAZOLE SODIUM 40 MG/VIAL (PROTONIX) IVP SCH ×2 (08:21→20:54)
[2022-12-08] MEDS: ESCITALOPRAM 10 MG PO SCH (08:22)
[2022-12-08] MEDS: METHYLPREDNISOLONE SOD SUCC 40 MG/ML VIAL IVP SCH (08:22)
[2022-12-08] MEDS: DIVALPROEX SODIUM 500 MG TAB.SR.24H (DEPAKOTE ER) PO SCH (08:22)
[2022-12-08] MEDS: ENOXAPARIN SODIUM 40 MG/0.4 ML SYRINGE SUBCUT SCH (08:23)
[2022-12-08] MEDS: IBUPROFEN 800 MG TABLET PO PRN (08:23)
--- NOTE | 2022-12-08 08:45 | NUR ---
MD RAOUL DESIR FOR MEDICATIONS AND ORDERS Addendum: 12/08/22 at 1017 by Jay Shultz RN DISREGARD ABOVE NOTE ENTERED ON WRONG PATIENT
--- NOTE | 2022-12-08 10:38 | NUR ---
SPOKE WITH DR GILBERTO GORMAN TO DOWNGRADE TO [facility]
--- NOTE | 2022-12-08 10:45 | NUR ---
BATHROOM/FALL ASSISTED PATIENT WITH AMBULATION TO THE BATHROOM, PATIENT HAD BM AND HE WAS REACHING FOR THE TOILET PAPER, HE SLIPPED OFF THE COMMODE AND HIS BOTTOM WAS ON THE FLOOR. ASSISTED PATIENT UP AND BACK TO BED WITH ASSISTANCE OF SECOND RN. PATIENT DENIES ANY PAIN OR DISCOMFORT. PAGED DR MACIAS
--- NOTE | 2022-12-08 11:07 | NUR ---
INFORMED DR MACIAS THAT PATIENT SLIPPED OFF TOILET AND BOTTOM WAS ON THE FLOOR, NO NEW ORDERS RECEIVED
--- NOTE | 2022-12-08 11:30 | NUR ---
CM noted order for Murray Ngozi eval. referral packet faxed to [facility] intake f#[phone]. will follow up
[2022-12-08 12:00] VITALS: BP_SYST 118
--- NOTE | 2022-12-08 12:43 | NUR ---
CM follow up with Dahlia at [facility]. Packet is under review. ceramic research engineer liason will call CM with decision
--- NOTE | 2022-12-08 13:07 | NUR ---
family mother is bedside, informed mother of fall. answered all questions, mother verbalized understanding
--- NOTE | 2022-12-08 13:45 | NUR ---
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 Demetra informs CM that patient will also need an OT eval. CM to reach out to attending to order OT eval.
[2022-12-08] MEDS: FLUCONAZOLE 200 mg/ NS 100 ML IV SCH (13:46)
--- NOTE | 2022-12-08 13:59 | NUR ---
Short Nutrition Note RD visited pt this afternoon and s/w RN. He is still on CLD and very ready for foods but is still waiting for swallow eval. RD asked RN if we could at least put him on full liquids and she agreed. RD ordered FLD and brought him an Ensure Plus HP. JULIA, MPH, RD
--- NOTE | 2022-12-08 15:11 | NUR ---
ST EVALUATION COMPLETED. ST TX NOT INDICATED AT THIS TIME. RECOMMEND PO DIET OF REGULAR/THIN LIQUID. DISTANT SUPERVISION AND FULL ASPIRATION PRECAUTIONS
--- NOTE | 2022-12-08 15:23 | NUR ---
PHYSICAL THERAPY CO-SIGN The Physical Therapy Progress Notes documented by Casing Builder have been reviewed. Reviewed/Co-Signed by: Carlton Yung Documentation Done by:MIKE RODRIGUEZ Addendum: 12/08/22 at 1523 by Carlton Yung PT Amended: Links added.
--- NOTE | 2022-12-08 15:56 | NUR ---
CM called [facility] for this patient to inquire about AFB status. CM informed that only AFB specimens were received and that they were a send out to their [place] lab site. Results are still pending and that it will take between 43-56 days for final specimen result. Will let attending MD know
--- NOTE | 2022-12-08 16:19 | NUR ---
Nursing cleared pt for OT eval and tx. Patient was alert and cooperative. Pls see OT eval and tx notes in chart for more detail. Pt. will be Under OT tx QD 5x/wk for ADL/ self care task training, Thera ex, Thera act. and NMR. Patient will also benefit from acute rehab when d/c here in acute setting. Nursing notified.
--- NOTE | 2022-12-08 17:37 | NUR ---
nurse patient ambulated to the bathroom with FWW. steady gait. BM. Returned to bed. Denies any pain or discomfort
--- NOTE | 2022-12-08 19:41 | NUR ---
closing note Provided SBAR to night RN. Patient in bed, respirations even, non labored, bed in low and locked position, call light within reach, bed alarm on. Endorsed care to night RN..
[2022-12-08 20:00] VITALS: BP_SYST 130
[2022-12-09 00:20] VITALS: BP_SYST 119
[2022-12-09 05:18] LABS: BASOPHILS # (AUTO) 0.1 K/uL (0.0-0.2); BASOPHILS % (AUTO) 0.6 % (0.0-2.0); EOSINOPHILS # (AUTO) 1.7 K/uL (0.0-0.4); HEMATOCRIT 33.8 % (36-54); HEMOGLOBIN 11.3 g/dL (14.0-18.0); LYMPHOCYTES # (AUTO) 3.8 K/uL (1.0-5.5); MEAN CORPUSCULAR HEMOGLOBIN 31 pg (27-31); MEAN CORPUSCULAR HGB CONC 34 % (32-36); MEAN CORPUSCULAR VOLUME 94 fL (79.0-98.0); MONOCYTES % (AUTO) 6.6 % (1.7-9.3); NEUTROPHILS # (AUTO) 8.6 K/uL (1.8-7.7); NEUTROPHILS % (AUTO) 56.8 % (40.0-70.0); PLATELET COUNT (AUTO) 370 K/uL (130-430); RED BLOOD CELL COUNT(AUTO) 3.61 MIL/uL (4.2-6.2); RED CELL DISTRIBUTION WIDTH 13.2 % (9.0-15.0); WHITE BLOOD COUNT (AUTO) 15.1 K/uL (4.8-10.8)
--- NOTE | 2022-12-09 05:56 | NUR ---
SHIFT NOTES: Patient was received from AM shift nurse at shift change. Patient is AA&Ox4 able to make needs known, with call light within reach. Patient denies any pain or distress at this time and chest rise is even and unlabored on RA. BRENNEN PICC line noted C/D/I and saline locked. Patient was assessed at this time as per protocol. Safety measures are in place as per protocol and patient was informed to call the nurse when ever he needed to go to restroom for safety. Patient verbalized understanding. Will resume care. 2200: Patient received all scheduled medications and reports no distress at this time. 0100: Patient midnight V/S have been assessed and are WNL. Chest rise remain even and unlabored on RA patient is in bed resting. 0600; Patient remains in bed resting no s/s of distress is noted at this time. Chest rise is even and unlabored and call light is within reach. Safety measures remain in place as per protocol. Will differ care to AM shift nurse for continuity of care.
[2022-12-09 05:57] LABS: C-REACTIVE PROTEIN QUANT 9.8 mg/dL (0-0.5); CALCIUM 8.6 mg/dL (8.4-11.0); CREATININE 0.62 mg/dL (0.55-1.30)
[2022-12-09 06:51] LABS: ERYTHROCYTE SEDIMENTATION RATE 41 MM/HR (0-15)
[2022-12-09] MEDS: BUDESONIDE 0.5 MG/2 ML AMPUL.NEB INH SCH ×2 (08:02→20:12)
[2022-12-09 08:24] VITALS: BP_SYST 124
[2022-12-09] MEDS: METHYLPREDNISOLONE SOD SUCC 40 MG/ML VIAL IVP SCH (08:52)
[2022-12-09] MEDS: ENOXAPARIN SODIUM 40 MG/0.4 ML SYRINGE SUBCUT SCH (08:52)
[2022-12-09] MEDS: PANTOPRAZOLE SODIUM 40 MG/VIAL (PROTONIX) IVP SCH ×2 (08:53→21:15)
[2022-12-09] MEDS: DIVALPROEX SODIUM 500 MG TAB.SR.24H (DEPAKOTE ER) PO SCH (08:53)
[2022-12-09] MEDS: ESCITALOPRAM 10 MG PO SCH (08:54)
--- NOTE | 2022-12-09 10:13 | NUR ---
QUYEN reached out to Dr Chou regarding patient AFB x2 and indeterminant TB Gold and [facility]'s policy of requiring 3 negative AFB results or a negative TB Gold. Dr Chou stated that the patient's 2 negative AFBs are better as they are from bronchial lavage source. QUYEN reached out to Demetra at [facility] and communicated Dr Chou's response; Demetra states if the patient isolation can be discontinued and documented, she will present it to her infection control dept. will reach out to Dr Chou again regarding isolation status.
[2022-12-09] MEDS ORDERED: POTASSIUM CHLORIDE 20 MEQ TAB.PRT.SR PO ONE (11:00)
[2022-12-09 11:22] VITALS: BP_SYST 133
[2022-12-09] MEDS ORDERED: POTASSIUM CHLORIDE 20 MEQ TAB.PRT.SR ONE (11:34)
[2022-12-09] MEDS: FLUCONAZOLE 200 mg/ NS 100 ML IV SCH (13:02)
--- NOTE | 2022-12-09 13:20 | NUR ---
CM follow up with Dr Rodriguez regarding patient isolation status. states that he discontinued airborne isolation on 12/05/22. will fax progress note to [facility]
--- NOTE | 2022-12-09 14:34 | NUR ---
Recruiting Operations Consultant [employer]ROSION PREVENTION METAL SPRAYER made a follow up phone call to Christopher Ferrara, Demetra stated she is waiting for their infectious controller to review the report from Dr. Mares for final approval. Additionally, Demetra was requesting the OT report needed to proceed as part of the intake eval. CORROSION PREVENTION METAL SPRAYER faxed OT report dated 12/08 to [facility],
[2022-12-09 15:23] VITALS: BP_SYST 129
--- NOTE | 2022-12-09 15:34 | NUR ---
PHYSICAL THERAPY CO-SIGN The Physical Therapy Progress Notes documented by Strapping Machine Tender have been reviewed. Reviewed/Co-Signed by: Carlton Yung Documentation Done by:MIKE RODRIGUEZ Addendum: 12/09/22 at 1535 by Carlton Yung PT Amended: Links added.
--- NOTE | 2022-12-09 15:36 | NUR ---
updated clinicals faxed to Lesly at [facility]. Earlycarlos alberto [facility] eval completed. patient is agreeable and patient accepted. Lesly to get authorization from patient insurance.
--- NOTE | 2022-12-09 17:00 | NUR ---
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 No new orders, DR Ruiz recommends continue current treatment plan.
--- NOTE | 2022-12-09 18:43 | NUR ---
Pt. was cleared by nursing for OT tx. Pt was alert and cooperative. Tolerated tx without pain nor SOB. Pls. see OT tx neotes in chart for more details.
[2022-12-09 20:00] VITALS: BP_SYST 131
[2022-12-10 00:41] VITALS: BP_SYST 124
[2022-12-10 06:51] LABS: BASOPHILS # (AUTO) 0.2 K/uL (0.0-0.2); BASOPHILS % (AUTO) 1.2 % (0.0-2.0); EOSINOPHILS # (AUTO) 1.8 K/uL (0.0-0.4); HEMATOCRIT 34.8 % (36-54); HEMOGLOBIN 11.5 g/dL (14.0-18.0); LYMPHOCYTES # (AUTO) 4.1 K/uL (1.0-5.5); LYMPHOCYTES % (AUTO) 27.3 % (20.5-51.5); MEAN CORPUSCULAR HEMOGLOBIN 31 pg (27-31); MEAN CORPUSCULAR HGB CONC 33 % (32-36); MEAN CORPUSCULAR VOLUME 94 fL (79.0-98.0); MONOCYTES # (AUTO) 0.9 K/uL (0.0-1.0); MONOCYTES % (AUTO) 5.9 % (1.7-9.3); NEUTROPHILS % (AUTO) 53.6 % (40.0-70.0); PLATELET COUNT (AUTO) 342 K/uL (130-430); RED BLOOD CELL COUNT(AUTO) 3.69 MIL/uL (4.2-6.2)
[2022-12-10] MEDS: BUDESONIDE 0.5 MG/2 ML AMPUL.NEB INH SCH ×2 (07:10→19:35)
[2022-12-10 07:53] LABS: CALCIUM 8.6 mg/dL (8.4-11.0); CREATININE 0.66 mg/dL (0.55-1.30)
[2022-12-10 08:00] VITALS: BP_SYST 132
--- NOTE | 2022-12-10 08:00 | NUR ---
RECEIVED PATIENT FROM PM NURSE, ALERT AND ORIENTED,ABLE TO VERBALIZE NEEDS, 2 LUMEN PICC IN BRENNEN PATENT AND DRESSING DIT , NO C/O PAIN OR DISCOMFORT AT THIS TIME, PATIENT ON CONTACT ISOLATION PRECAUTIONS DUE TO RYAN AUREUS, WILL ASSUME ALL CARE OF PATIENT
[2022-12-10 08:15] LABS: ERYTHROCYTE SEDIMENTATION RATE 70 MM/HR (0-15)
[2022-12-10] MEDS: METHYLPREDNISOLONE SOD SUCC 40 MG/ML VIAL IVP SCH (08:58)
[2022-12-10] MEDS: DIVALPROEX SODIUM 500 MG TAB.SR.24H (DEPAKOTE ER) PO SCH (08:59)
[2022-12-10] MEDS: ESCITALOPRAM 10 MG PO SCH (08:59)
[2022-12-10] MEDS: PANTOPRAZOLE SODIUM 40 MG/VIAL (PROTONIX) IVP SCH ×2 (08:59→20:56)
[2022-12-10] MEDS: ENOXAPARIN SODIUM 40 MG/0.4 ML SYRINGE SUBCUT SCH (08:59)
--- NOTE | 2022-12-10 09:41 | NUR ---
Nutrition F/U RD reviewed pts current EMR including diet hx, physician notes, nursing notes, pertinent labs/meds/procedures, care trends and care activity. Subjective Information: 12/05: Pt extubated! 12/07: RD checked his weight on [id number]#/68 kg. Pt reports that he normally weighs 170#. Pt lost 20# during his hospital stay. 12/10: Pt weight on .6#/[address] rounded to pt room and s/w him. He is slowly gaining weight; is on a regular diet; eating well; feeling much better; denies any GI symptoms. Per EMR review: pt will likely be transferred to [facility] for rehab; abd soft, non-distended w/ active bowel sounds; LABS: WBC 15.0 H (improving), K+ 3.8 WNL, BG 98 WNL, CRP 4.0 H (improving). Pt is currently meeting nutritional needs. Current Diet Order/Nutrition Support: Regular x 2 days % PO intake: Good avg of 92% x 6 meals Last BM: 12/08 x 1 per EMR review Estimated Energy Expenditure (kcals/day) 3044-2762 kcal (30-35 kcal/kg CBW [68kg] for steady weight gain) Estimated Protein Required (g/day) 116-154 (1.5-2 gm/kg CBW d/t critical illness) Estimated Fluid Required (l/day) 2.0-2.3L (1 ml/kcal/day for adult maintenance) Problem/Etiology/Signs/Symptoms 1. Inadequate protein/energy intake r/t poor appetite AEB Inadequate PO intake reported by EMR and patient x3 days. *resolving 2. Altered nutrition-related lab values r/t renal dysfunction/current medical condition AEB labs (12/04/22) Na 135L, K 3.6 WNL, Creat 0.53L, eGFR 194 WNL. *Labs now improved, mostly WNL Expected Outcomes/Goals 1. EN support will meet >80% of estimated nutrient need without GI complications 2. Improved/stable nutrition-related labs 3. Maintain skin integrity Dietitian Recommendations * Continue regular diet * Encourage good PO intake Follow up * Moderate Risk: RD to F/U within 3-5 days GS, MPH, RD
--- NOTE | 2022-12-10 09:43 | NUR ---
Dietitian Recommendations * Continue regular diet * Encourage good PO intake GS, MPH, RD Please refer to Nutrition F/U for further details. Thanks!
[2022-12-10 11:23] VITALS: BP_SYST 126
--- NOTE | 2022-12-10 12:00 | NUR ---
PATIENT C/O WEAKNESS AND FATIGUE POST PHYSICAL THERAPY VISIT, SECURED O2, ASSISTED TO REPOSITION PATIENT BACK INTO BED AND ADVISED TO CALL NURSE FOR ASSISTANCE OR IF SYMPTOMS PERSIST
--- NOTE | 2022-12-10 14:42 | NUR ---
Jo Ann from [facility] accepting pt. phone#[phone] from [facility]
[2022-12-10] MEDS: FLUCONAZOLE 200 mg/ NS 100 ML IV SCH (15:11)
[2022-12-10 15:30] VITALS: BP_SYST 130
--- NOTE | 2022-12-10 17:52 | NUR ---
Pt. was cleard by nursing for OT tx. Pt. was alert and cooperative. Tolerated light resistive exercises to both UE with rest in btween. Able to participate with ADL task and balance exercises without SOB. Pls see OT tx notes in chart for more detail. nursing notified.
--- NOTE | 2022-12-10 18:42 | NUR ---
PATIENT RESTING COMFORTABLY, NO C/O PAIN OR DISCOMFORT AT THIS TIME, WILL ENDORSE CARE OF PATIENT TO PM NURSE
[2022-12-10 20:00] VITALS: BP_SYST 140
[2022-12-11 00:29] VITALS: BP_SYST 124
--- NOTE | 2022-12-11 02:38 | NUR ---
PICC LINE DRESSING CHANGE COMPLETED: PICC LINE Dressing change completed as indicated using sterile technique. No s/s of arm swelling, erythema or or discharge from the insertion site, Line was easily flushed, blood return was assessed but not but not noted. 2 lumen ports were change. Patient tolerated the procedure well. Next dressing change due 12/14/22 or PRN.
[2022-12-11 05:47] LABS: BASOPHILS # (AUTO) 0.1 K/uL (0.0-0.2); BASOPHILS % (AUTO) 0.7 % (0.0-2.0); EOSINOPHILS # (AUTO) 1.3 K/uL (0.0-0.4); EOSINOPHILS % (AUTO) 9.4 % (0.0-4.0); HEMATOCRIT 33.6 % (36-54); HEMOGLOBIN 11.1 g/dL (14.0-18.0); MEAN CORPUSCULAR HEMOGLOBIN 31 pg (27-31); MEAN CORPUSCULAR HGB CONC 33 % (32-36); MEAN CORPUSCULAR VOLUME 93 fL (79.0-98.0); MONOCYTES # (AUTO) 0.7 K/uL (0.0-1.0); MONOCYTES % (AUTO) 5.2 % (1.7-9.3); NEUTROPHILS # (AUTO) 6.5 K/uL (1.8-7.7); NEUTROPHILS % (AUTO) 47.7 % (40.0-70.0); PLATELET COUNT (AUTO) 325 K/uL (130-430); RED BLOOD CELL COUNT(AUTO) 3.59 MIL/uL (4.2-6.2); RED CELL DISTRIBUTION WIDTH 13.2 % (9.0-15.0); WHITE BLOOD COUNT (AUTO) 13.6 K/uL (4.8-10.8)
[2022-12-11 06:26] LABS: C-REACTIVE PROTEIN QUANT 1.9 mg/dL (0-0.5); CALCIUM 8.7 mg/dL (8.4-11.0); CREATININE 0.65 mg/dL (0.55-1.30)
[2022-12-11 06:31] LABS: ERYTHROCYTE SEDIMENTATION RATE 58 MM/HR (0-15)
[2022-12-11] MEDS: BUDESONIDE 0.5 MG/2 ML AMPUL.NEB INH SCH (07:16)
--- NOTE | 2022-12-11 07:58 | NUR ---
PHYSICAL THERAPY CO-SIGN The Physical Therapy Progress Notes documented by Engineer Second Assistant have been reviewed. Reviewed/Co-Signed by: Christos Patel Documentation Done by:MIKE RODRIGUEZ Addendum: 12/11/22 at 0758 by Christos Patel PT Amended: Links added.
[2022-12-11] MEDS ORDERED: predniSONE 10 MG TABLET PO SCH (09:00)
--- NOTE | 2022-12-11 09:30 | NUR ---
update provided to mother at bedside with patients consent
[2022-12-11] MEDS: PANTOPRAZOLE SODIUM 40 MG/VIAL (PROTONIX) IVP SCH (09:32)
[2022-12-11] MEDS: ENOXAPARIN SODIUM 40 MG/0.4 ML SYRINGE SUBCUT SCH (09:32)
[2022-12-11] MEDS: DIVALPROEX SODIUM 500 MG TAB.SR.24H (DEPAKOTE ER) PO SCH (09:33)
[2022-12-11] MEDS: ESCITALOPRAM 10 MG PO SCH (09:33)
[2022-12-11 11:25] VITALS: BP_SYST 117
--- NOTE | 2022-12-11 12:00 | NUR ---
covid swab obtained and taken to lab
--- NOTE | 2022-12-11 13:46 | NUR ---
CM attempt to call pt mother Cecil [phone] to update on discharge disposition. no answer. left VM with call back #. Info on room # at [facility] and ambulance ETA orange picking supervisor time included.
--- NOTE | 2022-12-11 13:51 | NUR ---
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
--- NOTE | 2022-12-11 15:19 | NUR ---
PHYSICAL THERAPY CO-SIGN The Physical Therapy Progress Notes documented by Six Pack Loader Operator have been reviewed. Reviewed/Co-Signed by: Christos Patel Documentation Done by:MIKE RODRIGUEZ Addendum: 12/11/22 at 1519 by Christos Patel PT Amended: Links added.
[2022-12-11] MEDS: FLUCONAZOLE 200 mg/ NS 100 ML IV SCH (15:24)
[2022-12-11 15:27] VITALS: BP_SYST 117
--- NOTE | 2022-12-11 16:06 | NUR ---
TELEPHONE CALL TO [facility] TO GIVE REPORT TO RECEIVING NURSE, SPOKE TO LADAN ENRIQUEZ
[2022-12-11 16:24] VITALS: BP_SYST 117
--- NOTE | 2022-12-11 17:02 | NUR ---
SPOKE TO DR. BRASHER SPOKE TO DR BRASHER AND MADE AWARE THAT PATIENT IS GOING TO [facility] AND PATIENT DOESN'T NEED IV ABT AND ALREADY COMPLETED.
--- NOTE | 2022-12-11 17:40 | NUR ---
PATIENT DC TO [facility], MIDLINE IN LEFT UPPER ARM DC WITH CATH INTACT, EDUCATION PROVIDED TO PATIENT AND MOTHER AT BEDSIDE, TRANSPORTED VIA [facility], NO FURTHER NEEDS AT THIS TIME
--- NOTE | 2022-12-11 20:36 | NUR ---
Medication : mother Li Lyman came and picked up pts Tedaprtrevor ( home medication).
== END 2022-12-11 17:45 | DRG 870 ==
LOC: SED 13:43 → SMU 17:17 → SIC 11-19 04:05 → SMU 12-07 18:15 → STU 12-07 18:50 → SMU 12-08 10:45
PROVIDERS: ADMIT Preventive Medicine Preventive Medicine/Occupational Environmental Medicine; ATTEND Preventive Medicine Preventive Medicine/Occupational Environmental Medicine
PROC: 5A0935A Assistance with Respiratory Ventilation, Less than 24 Consecutive Hours, High Flow/Velocity Cannula (ICD-10-PCS; 2022-11-19)
PROC: 5A1955Z Respiratory Ventilation, Greater than 96 Consecutive Hours (ICD-10-PCS; principal; 2022-11-20)
PROC: 0BH17EZ Insertion of Endotracheal Airway into Trachea, Via Natural or Artificial Opening (ICD-10-PCS; 2022-11-20)
PROC: 0BJ08ZZ Inspection of Tracheobronchial Tree, Via Natural or Artificial Opening Endoscopic (ICD-10-PCS; 2022-11-20)
PROC: 5A09357 Assistance with Respiratory Ventilation, Less than 24 Consecutive Hours, Continuous Positive Airway Pressure (ICD-10-PCS; 2022-11-21)
PROC: 05HY33Z Insertion of Infusion Device into Upper Vein, Percutaneous Approach (ICD-10-PCS; 2022-12-08)
DX: A41.9 Sepsis, unspecified organism (principal); E43 Unspecified severe protein-calorie malnutrition; J18.9 Pneumonia, unspecified organism; R65.21 Severe sepsis with septic shock; J80 Acute respiratory distress syndrome; D84.821 Immunodeficiency due to drugs; E87.1 Hypo-osmolality and hyponatremia; M62.82 Rhabdomyolysis; N17.9 Acute kidney failure, unspecified; Z99.11 Dependence on respirator [ventilator] status; Z20.822 Contact with and (suspected) exposure to COVID-19; D64.9 Anemia, unspecified; D75.839 Thrombocytosis, unspecified; E83.39 Other disorders of phosphorus metabolism; E83.41 Hypermagnesemia; Z68.27 Body mass index [BMI] 27.0-27.9, adult; E83.51 Hypocalcemia; E83.52 Hypercalcemia; E87.6 Hypokalemia; E88.09 Other disorders of plasma-protein metabolism, not elsewhere classified; F17.210 Nicotine dependence, cigarettes, uncomplicated; R73.9 Hyperglycemia, unspecified; L40.9 Psoriasis, unspecified; E87.5 Hyperkalemia; F41.9 Anxiety disorder, unspecified; R13.10 Dysphagia, unspecified; F10.10 Alcohol abuse, uncomplicated; E86.0 Dehydration; F31.9 Bipolar disorder, unspecified; T38.0X5D Adverse effect of glucocorticoids and synthetic analogues, subsequent encounter; Z79.620 Long term (current) use of immunosuppressive biologic
CPT/HCPCS: 0241U; 36415; 36600; 70450-TC; 71045; 71250-TC; 76376; 76770; 80048; 80053; 81000; 82009; 82550; 82553; 82570; 82785; 82803-TC; 83605; 83735; 83880; 84100; 84302; 84478; 85025; 85610-TC; 85651-TC; 85730-TC; 86140; 86162; 86480; 86635; 86738; 87040; 87070-TC; 87081; 87086; 87101; 87116; 87205-TC; 87305; 87536; 87556; 92610-GN; 94002; 94003; 94640; 94660; 94760; 96365; 97110-GO; 97110-GP; 97116-GP; 97163-GP; 97530-GO; 97530-GP; 97535-GO; 99285; C9113; G0378; J0456; J0692; J0696; J1030; J1120; J1450; J1650; J1940; J1956; J2020; J2060; J2185; J2248; J2405; J2704; J2930; J3010; J3475; J3480; J3490; J7050; J7060; J7512; J7613; J7626